=== PATIENT | male | born 1940 | race Caucasian/White ===

== ENCOUNTER → 2016-10-02 | Outpatient (CLI) | payer OTHER ==
[~2016-10-02] VITALS: Ht 172.7 cm; Wt 69.9 kg
[~2016-10-02] MED LIST: ANDROGEL1.25 GM TD; BUTRANS1 EAC1 TD; CELEBREX 200 M200 M1 PO; CELEXA20 MG PO; CLONAZEPAM 1 MG1 M1 PO; DEPO-TESTO100 MG/1 M IM; FENTANYL PA25 MCG/HR TRANSDERM; FENTANYL PA50 MCG/HR TRANSDERM; LISINOPRIL10 MG PO; LISINOPRIL5 MG PO; MOBIC15 MG PO; MOBIC7.5 MG PO; MS CONTIN15 MG PO; MULTI VITAMIN1 EACH PO; OSTEO BI-FLEX1 EAC1 PO; OXYCODONE-ACET1 EAC2 PO; OXYCODONE-ACET1 EACH PO; PERCOCET 10-321 EACH PO; RITALIN10 MG PO; SIMVASTATIN40 MG PO; SONATA5 M1 PO; ZOCOR 10 MG TAB10 MG PO
--- NOTE | ~2016-10-02 | HPC ---
[facility] [address] [place] [address] PAIN MANAGEMENT CONSULTATION Name: FATIMAH LI Room #: REG TEZ Brit#: [id number] Admission: 10/02/16 Attend Phys: Jose Blount MD Discharge: Date of : 44 Report #: [id number] THIS REPORT FOR: //name// CC: ANAMARIA Blount DATE OF SERVICE: 10/02/2016 DATE OF REGISTRATION: 10/02/2016 Followup visit for axial low back pain, lumbar facet pain bilateral, lumbar spondylosis. After an exhaustive period of time describing explaining the diagnostic procedure for lumbar facet pain followed by the performance of medial branch nerve blocks, the patient was discharged after last visit when we performed injections. At the time of discharge he reported no pain and had substantial improvement over the next 12-24 hours with the diagnostic 0.5% Marcaine before the pain returned. As we had discussed at previous visit and at multiple previous visits, this would indicate that the lumbar facet joints are the cause of his underlying back pain. He returned today to begin procedure radiofrequency lesioning as discussed at his last visit. He stopped me in the pressley before he had even reached the room and said he had decided that he did not want to proceed with radiofrequency. He said "I am just not ready for that yet." After all of our discussions, I did not spend further time trying to convince him or explain to him why that would be the next logical step. He requested lumbar cortisone facet injections which he reports have provided him at times with months of pain relief. These were last done in mid 2015. I have agreed to do so. Again, the most pressing topic for him as we begin to discuss his pain are his financial issues. He led off describing the hardships that he and his are having and going from their previous state, which he describes as being millionaires to now being essentially destitute. I empathized but I was unable to provide more than my emotional support. We did acknowledge that this is stressful for him and stress exacerbates pain. We have discussed his medications, which include the use of opioids, citalopram for depression and clonazepam prescribed for anxiety or for sleep. I have discussed the possibility of tapering his opioids due to his feelings of tiredness during the day. These are never evident during his visits. He is always wide awake and does not appear to be overmedicated. He reports that without the pain medication he does not think that he would get out of bed at [address] [address] PAIN MANAGEMENT CONSULTATION Name: FATIMAH LI Room #: REG CLI MiguelangelVioletta#: [id number] Admission: 10/02/16 Attend Phys: Jose Blount MD Discharge: Date of : 44 Report #: [id number] all, his pain is so severe. When the injections are performed and his pain improves, I would like him to taper on his oxycodone and in the future we will continue to try and press him to taper his medication. MEDICATIONS: Fentanyl patch 50 mcg q.72 hours, Oxycodone 5/325 one half to one tablet as needed for breakthrough pain q.8 hours, Celebrex 200 mg daily, clonazepam 1 mg at bedtime, citalopram 20 mg morning. In addition, he takes simvastatin 40 mg in the evenings. ALLERGIES: None. PHYSICAL EXAMINATION: Slender and anxious gentleman, blood pressure 121/86, heart rate 79, respirations 14, 5 feet 8 inches, 154 pounds, BMI of 23.4, moves easily from sitting to standing position, ambulates without difficulty. Range of motion of the lumbar spine is fairly normal for age. He has mild exacerbation of pain with back extension. This is where he complains of most of his pain across the lumbosacral segment. Lateral tilt and rotation movements also mildly exacerbate pain. He scores his pain as a 3 today. IMPRESSION: 1. Chronic back pain without radiculopathy. Lumbar facet pain assuming L3-L4, L4-L5 and L5-S1 based upon diagnostic injections bilaterally. Lumbar spondylitic pain without radiculopathy. 2. Management of high risk medication. 3. Depression and anxiety. PROCEDURE: After discussing the potential benefits, risks and the offer of radiofrequency ablation at some time in the future, we went to the treatment room where he was placed prone, skin prepped with ChloraPrep. Skin was anesthetized first on the left overlying the L3-L4, L4-L5 and L5-S1 facet joints. A 25-gauge needle was gently advanced into the posterior capsule of the inferior most portion entering that recess of the joint. After negative aspiration, I injected each joint capsule with total of 1 mL of 0.5% bupivacaine mixed with roughly 12-15 mg of triamcinolone. The needles were removed. C-arm was moved to the right and injections were performed at the same joints. Total of 6 joints were injected. He tolerated the procedure well. Pain was markedly reduced in recovery room, he was discharged. No medications were provided at today's visit. <ELECTRONICALLY SIGNED> By: Jose Blount MD 10/03/16 [id number] [id number] Jose Blount MD /nt
[2016-10-02 10:33] VITALS: BP 121/86
== END | disposition home or self-care (01) ==
LOC: PAIN 07:04
DX: M47.816 Spondylosis without myelopathy or radiculopathy, lumbar region (principal); M54.16 Radiculopathy, lumbar region; F32.9 Major depressive disorder, single episode, unspecified; F41.9 Anxiety disorder, unspecified

== ENCOUNTER → 2016-12-07 | Outpatient (CLI) | payer OTHER ==
[~2016-12-07] VITALS: Ht 172.7 cm; Wt 64.4 kg
[~2016-12-07] MED LIST changes: +VOLTAREN GEL 1100 G2 TOP
--- NOTE | ~2016-12-07 | HPC ---
[facility] [address] [place] [address] PAIN MANAGEMENT CONSULTATION Name: FATIMAH LI Room #: REG TEZ Brit#: [id number] Admission: 12/07/16 Attend Phys: Jose Blount MD Discharge: Date of : 44 Report #: [id number] THIS REPORT FOR: //name// CC: ANAMARIA Blount DATE OF SERVICE: 12/07/2016 Followup visit for chronic low back pain, lumbar spondylosis. The patient was last seen over 2 months ago. He has axial back pain without radiculopathy and has been responsive to lumbar facet injections. Over the course of the last year, I have performed lumbar facet injections on 3 separate occasions and I have also performed medial branch nerve blocks in anticipation of radiofrequency ablation. He has responded to all injections with duration of response varied between a few days with medial branch nerve blocks and up to 3 months with lumbar facet intraarticular injections. I have discussed at length the procedure radiofrequency ablation; however, he has decided against the procedure. We reviewed it again today, but he would like to continue with these low dose triamcinolone injections which most recently provided him with nearly 2-1/2 months of excellent pain relief, pain is now returning. I also provided for him chronic pain medication under terms of an opioid agreement. He is currently using 50 mcg of fentanyl patches every 2 days, which is discussed elsewhere in the chart and oxycodone 5/325 up to 3 times a day for breakthrough pain. He uses this based on need and I have pressed him to use the lowest most effective dose. He has constantly complained of lack of energy even before he was on medication, much of this related to pain, he says. When the pain is severe, he just needs to lie down. Because of his lack of energy, his primary care physician, Dr. Anamaria Rosen has given him testosterone injections monthly and he seems to think that this has helped. He does seem to be more positive today. It is quite likely that his testosterone is low both because of age and related to his use of chronic opioids which we have discussed. For the first time in many visits, he did not discuss his financial situation with us. He seems less stressed today. PHYSICAL EXAMINATION: He is lean, 76-year-old. Blood pressure is 122/70, heart rate is 53. He moves easily from sitting to standing position, walks without antalgic features. He bends over slightly at the waist and with back extension, he complains of pain across his lumbosacral segment involving the L5-S1, L4-L5, L3-L4 region with local tenderness. There is no pain in the legs, no straight [address] [address] PAIN MANAGEMENT CONSULTATION Name: FATIMAH LI Room #: REG [facility] Miguelangel.#: [id number] Admission: 12/07/16 Attend Phys: Jose Blount MD Discharge: Date of : 42 Report #: [id number] leg raising or any other discomfort. No focal weakness is noted through the lower extremities. IMPRESSION: 1. Chronic back pain with lumbar spondylosis L3-L4 through L5-S1. 2. Management of high risk medication. 3. Depression, anxiety, improved. PLAN: After a lengthy discussion, I have agreed to provide him with the triamcinolone injections. Once again, I will provide these for him at intervals necessary and will try not to exceed Medicare guidelines for this. Risks and benefits were reviewed. PROCEDURE: He was taken to the fluoroscopic suite for treatment, placed prone, skin prepped with ChloraPrep, skin anesthetized over the L4-L5, L5-S1 and L3-L4 facet joints. We began on the left. The 25-gauge needles were gently advanced into the joint capsule in the posterior inferior aspect. After negative aspiration, I injected each one with 0.5% bupivacaine mixed with 10 mg of triamcinolone. [place] were removed. C-arm was then moved to the right. We performed the injections on the opposite side using the same technique. He was taken to recovery room for observation. His pain score was 0 when he was discharged, his movements were much more . Followup visit is planned as needed. Three months of medication provided under terms of our opioid agreement, which was reviewed. We discussed the CDC guidelines once again. By: [id number] Jose Blount MD /nt
[2016-12-07 14:00] VITALS: BP 125/65
== END ==
LOC: PAIN 11-13 07:35
DX: M47.816 Spondylosis without myelopathy or radiculopathy, lumbar region (principal); F41.8 Other specified anxiety disorders; G89.29 Other chronic pain

== ENCOUNTER → 2017-02-22 | Outpatient (CLI) | payer OTHER ==
[~2017-02-22] VITALS: Ht 172.7 cm; Wt 73.0 kg
--- NOTE | ~2017-02-22 | HPC ---
[facility] [address] [place] [address] PAIN MANAGEMENT CONSULTATION Name: FATIMAH LI Room #: REG TEZ Brit#: [id number] Admission: 02/22/17 Attend Phys: Jose Blount MD Discharge: Date of : 42 Report #: [id number] THIS REPORT FOR: //name// CC: ANAMARIA Blount DATE OF SERVICE: 02/22/2017 DATE OF REGISTRATION: 02/22/2017. REASON FOR VISIT: Followup visit for lumbar spondylosis. SUBJECTIVE: The patient returns to pain clinic today for renewal of pain medication. He would like to have injections once again. He is a candidate for radiofrequency ablation but refuses it. He does get some decent relief with facet injections performed intermittently. I have agreed to repeat these injections for him today. His reports that he still laze around the house a lot. We have encouraged him, but I can do no more. He says that his pain is just too severe for him to get up and be active. Pain score today is reported as a 5/10. It is a constant stiffness and aching soreness in his low back. He denies leg pain once again. Pain is worse with prolonged sitting, driving here from [place] caused an increase in pain. It is worse also with prolonged walking activities. He tried to get in a walking program as I recommended but he said that it just caused too much pain. His affect is depressed, and he does not seem very motivated to do anything. I asked him about the upcoming solar eclipse which will be in his home town. He says he may watch it on TV. MEDICATIONS: Reviewed and reconciled from the electronic medical record. Medications that I provided for him under terms of an agreement are fentanyl 50 mcg q.48 hours and oxycodone 5/325 one tablet 3 times daily as needed for breakthrough pain. He has release prescriptions for 4 and 8 weeks. These medications were renewed for him today. PHYSICAL EXAMINATION: GENERAL: Affect is depressed and anxious. VITAL SIGNS: His blood pressure is 116/79, heart rate 66, and respirations 16. BMI is 24. MUSCULOSKELETAL: He is able to move from sitting to standing position pretty easily. Ambulates without antalgic features. He has mild pain with flexion, extension and mild local tenderness over the lumbosacral spine. This pain is mostly in the lower lumbar region. [address] [address] PAIN MANAGEMENT CONSULTATION Name: FATIMAH LI Room #: REG TEZ Means.#: [id number] Admission: 02/22/17 Attend Phys: Jose Blount MD Discharge: Date of : 42 Report #: [id number] IMAGING STUDIES: X-rays done in the past have demonstrated degenerative disease; this is age appropriate with multilevel disk changes. There is good alignment. He also has some minimally enhancing subacute small herniations seen along multiple endplates throughout the lumbar spine. Traditionally, these have not been felt to cause significant pain, although there may be some rethinking of this in the recent past. IMPRESSION: 1. Low back pain with spondylosis, bilateral L3-L4 through L5-S1. 2. Management of high-risk medication. 3. Depression, anxiety. PLAN: I will repeat the injections today in addition to his renewed medications. DESCRIPTION OF PROCEDURE: He was taken to fluoroscopy suite, placed prone and skin was prepped with ChloraPrep. Skin was anesthetized first on the left. Using fluoroscopic guidance, I carefully advanced 25-gauge needle into the posterior inferior capsule of L5-S1, L4-L5, L3-L4. After negative aspiration, I injected each joint with 1.5 mL of 0.5% bupivacaine mixed with 10-15 mg of triamcinolone. The needle was removed. C-arm was then rotated to the right. I identified once again, the same joints L3-L4, L4-L5 and L5-S1, and I advanced 25-gauge needles gently into the posterior inferior aspect of each joint. I repeated the injections on the right. He tolerated the injections well and was taken to the recovery room. Pain score is reduced at discharge. We will see him back as needed. We will try to perform these injections intermittently. I have reviewed again radiofrequency ablation with him given his response to these diagnostic injections, but he has it in his head this is a very dangerous procedure and does not want to go forward with it. I cannot force him into the treatments and willing to provide these cortisone injections for him which can be performed quickly under fluoroscopic guidance and are safe and effective for a few months. By: [id number] Jose Blount MD /nt
[2017-02-22 12:54] VITALS: BP 116/79
== END | disposition home or self-care (01) ==
LOC: PAIN 07:25
DX: M47.816 Spondylosis without myelopathy or radiculopathy, lumbar region (principal); G89.29 Other chronic pain; F32.89 Other specified depressive episodes; F41.8 Other specified anxiety disorders; Z79.891 Long term (current) use of opiate analgesic; Z98.890 Other specified postprocedural states

== ENCOUNTER → 2017-09-05 | Outpatient (CLI) | payer OTHER ==
[~2017-09-05] MED LIST changes: +DURAGESIC1 EAC1 TRANSDERM; +DURAGESIC1 EAC5 TOP; +PROBIOTIC1 EAC1 PO; +PROTONIX40 M1 PO
--- NOTE | ~2017-09-05 | HPC ---
[facility] [address] [place] [address] PAIN MANAGEMENT CONSULTATION Name: FATIMAH LI Room #: REG TEZ Miguelangel.#: [id number] Admission: 09/05/17 Attend Phys: Jose Blount MD Discharge: Date of : 44 Report #: [id number] THIS REPORT FOR: //name// CC: Dr. Randal Blount DATE OF SERVICE: 09/05/2017 Followup visit for lumbar spondylosis. The patient is in the Pain Clinic today with his in followup. He complains bitterly of pain in his back so much so that he cannot get out and do things. He spends a lot of time lying around the house. This is despite ongoing encouragement from his and myself. His is a real go-getter. She is a real time trader and has extensive volunteer for children program in [place], [place]. She also is on him a lot to try and get up and get going, but he does not seem to have any motivation, complaining that his pain is so bad that he cannot do anything. We have documented this throughout his visits here in the Pain Clinic. He has depression, which has been treated with Celexa and we have encouraged counseling. He does not seem to be motivated to pursue any of these options. I have tried to taper his medications in the past with limited improvement, generally follow up concerns that his pain is unmanageable. He is on fentanyl 50 mcg q. 48 hours. He is one of the many patients who we have seen who reports dramatic drop in pain relief at the 48-72 hour period, so use it at that level. He also has oxycodone 5/325 one tablet 3 times a day for breakthrough pain. I have encouraged him to use his medication prior to walking activities and I have really stressed importance of a walking program to him as well as perhaps even volunteering as his does. Again tells me that he is simply in too much pain and will not be able to do anything. The PQRS review is completed today. 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 He has remained slender with BMI in the mid-20s with no change or weight loss. His blood pressure is 126/86, heart rate 78, O2 sat is 97. Pain intensity today despite medication is 5/10. He has not fallen in the last 3 months and is not a fall risk. He is on no blood thinning medications. He has no history of hypertension. He is on an opioid agreement, which was initially signed several years ago and reevaluated in 02/2016. He is reminded of his responsibilities at each visit. An opioid risk tool has been completed that shows that he has at low risk for addiction. Functional assessment tool is also assessed verbally. He is not very active despite urgings. I am reluctant to increase pain medication as he request in order to try and get him moving. [address] [address] PAIN MANAGEMENT CONSULTATION Name: FATIMAH LI Room #: REG TEZ Perea#: [id number] Admission: 09/05/17 Attend Phys: Jose Blount MD Discharge: Date of : 42 Report #: [id number] In the interval since last visit, he was hospitalized for a bleeding ulcer. He should avoid all nonsteroidal anti-inflammatory drugs and opioids would likely be the most beneficial pain relieving medication for this gentleman. IMPRESSION: 1. Chronic intractable low back pain with spondylosis. 2. Ongoing depression and anxiety. 3. Recent gastritis with bleeding. PLAN: I renewed his current opioid medications under terms of our agreement. I stressed the importance of safeguarding all medications. Before discharging him from the clinic, both his and I made multiple suggestions for opportunities for him to get out and pursue activities outside of the home. We will see if he follows up on these at next visit. By: [id number] Jose Blount MD /nt
[2017-09-05 13:07] VITALS: BP 126/86
== END ==
LOC: PAIN 06-28 12:02
DX: M47.896 Other spondylosis, lumbar region (principal); F41.9 Anxiety disorder, unspecified; F32.9 Major depressive disorder, single episode, unspecified; K29.71 Gastritis, unspecified, with bleeding

== ENCOUNTER → 2018-01-10 | Outpatient (CLI) | payer OTHER ==
[~2018-01-10] VITALS: Ht 172.7 cm; Wt 80.7 kg
[~2018-01-10] MED LIST changes: +WELLBUTRIN SR150 MG PO
--- NOTE | ~2018-01-10 | HPC ---
[facility] [address] [place] [address] PAIN MANAGEMENT CONSULTATION Name: FATIMAH LI ARIANNA Room #: REG TEZ Miguelangel.#: [id number] Admission: 01/10/18 Attend Phys: Jose Blount MD Discharge: Date of : 42 Report #: [id number] THIS REPORT FOR: //name// CC: Physician staff ANAMARIA Bloutn DATE OF SERVICE: 01/10/2018 Followup visit for lumbar spondylosis. The patient returns to pain clinic today for followup. I continue to provide him medication to aid with his chronic pain. His , who is extremely hard of hearing, is with him today in the office visit to help share her perspective. In addition to chronic pain, the patient complains that he is always tired. His says that he spends far too much time sleeping. This has been a recurring complaint and an issue we have dealt with. I have tapered his pain medications as a result. When this occurs, the patient typically complains bitterly that he is even more sedate and more inclined to spend time in bed because the pain is so severe. He reports that it is pain that keeps him down, not so much that he is tired. We have identified two problems, the lack of motivation to get up and do things due to either tiredness or pain and chronic pain, which he tolerates poorly. His pain complaints today are typical low back, chronic spondylitic leg pain, but he also complains of pain in his right arm, which is due to a distant injury. He would not raise his arm to shake my hand today. That is not something that I remember. Medication does help his pain and reduces the intensity to a level today that he scores at 2/10. This unfortunately does not correlate with an improvement in day-to-day activities. He has only mild constipation as a side effect unless we consider his lack of motivation one of the pain medication. He has been placed on stimulants in the past. He is seen by Dr. Rosen on a regular basis. He has also been started on testosterone; a typical side effect of chronic opioid therapy is low testosterone, which we also see in a 77-year-old gentleman. PHYSICAL EXAMINATION: He is 5 feet 8 inches, blood pressure is 127/77, heart rate 72. His BMI is 27. He is not a fall risk. He is alert and he is oriented, shows no signs of overmedication today in our office. Pupils are equal, round, reactive to light. EOMs are intact. Mucous membranes are moist. Chest is clear. Cardiac rhythm is regular. Moves from sitting to standing and [facility] [address] [place] [address] PAIN MANAGEMENT CONSULTATION Name: FATIMAH LI Room #: REG [facility] Miguelangel.#: [id number] Admission: 01/10/18 Attend Phys: Jose Blount MD Discharge: Date of : 42 Report #: [id number] ambulates without too much in the way of antalgic features. He has increase in pain with back extension and [id number] movements. New findings include weakness of the upper extremity. He has good range of motion of the shoulder, elbow and wrist. He complains of weakness in the biceps, triceps and director of restaurant operations, all of which are noted subjectively in physical examination, although this may be related to effort. IMPRESSION: 1. Chronic intractable pain syndrome with spondylosis. 2. New reports of right arm pain and weakness, etiology (?) 3. Chronic anxiety and depression with debility. 4. Management of high risk medication. 5. History of gastritis with bleeding. We cannot use nonsteroidal anti-inflammatory drugs in his care. PLAN: I will renew his medications at fentanyl patch 50 mcg q.48 hours and oxycodone 5/325 three times daily. We reviewed his opioid agreement, the CDC guidelines. Hopefully, he will begin to push himself a bit from an exercise standpoint. I gave him significant encouragement today verbally regarding his need to push through his pain to remain more active during the day. I think there is a significant psychological overlay. Followup visit planned in 3 months. By: [id number] Jose Blount MD /cynthia
[2018-01-10 09:38] VITALS: BP 127/77
== END ==
LOC: PAIN 07:04
DX: M47.816 Spondylosis without myelopathy or radiculopathy, lumbar region (principal); G89.4 Chronic pain syndrome; F41.9 Anxiety disorder, unspecified; F32.9 Major depressive disorder, single episode, unspecified; Z79.899 Other long term (current) drug therapy

== ENCOUNTER → 2018-04-19 | Outpatient (CLI) | payer OTHER ==
[~2018-04-19] VITALS: Ht 172.7 cm; Wt 77.7 kg
[~2018-04-19] MED LIST changes: +DURAGESIC1 EAC5 TRANSDERM
--- NOTE | ~2018-04-19 | HPC ---
[facility] [address] [place] [address] PAIN MANAGEMENT CONSULTATION Name: FATIMAH LI Room #: REG [facility] Miguelangel.#: [id number] Admission: 04/19/18 Attend Phys: Nubia Buckley Discharge: Date of : 44 Report #: [id number] THIS REPORT FOR: //name// CC: Nubia Rosen Physician staff ANAMARIA Blount MD DATE OF SERVICE: 04/19/2018 CHIEF COMPLAINT: Follow up medication for his lumbar back pain, lumbar spondylosis. HISTORY OF PRESENT ILLNESS: The patient was seen in the Pain Clinic today for followup for his back pain. He states that it is terrible today, rating it actually only a 3 or a 4/10, but states that he is unable to get out of bed and has been sleeping about 15-20 hours a day because anytime he does any activity, his back hurts terribly. He said that he usually likes to get up and move, but he states that he feels most comfortable while he is lying in bed. His is not present today. She is going to need a knee replacement in the very near future and did not accompany him at this visit today. He states that she takes care of most of his medicines for him. The patient states that his primary doctor or his , he is unsure which one, did change some of his medications and he is more depressed than he usually is and thinks also that may aid in why he is sleeping so much. ALLERGIES: No known drug allergies. CURRENT MEDICATIONS: Oxycodone 5 mg, 1/2-1 three times a day as needed; fentanyl 50 mcg patch every 48 hours; probiotic; Protonix 40 mg twice a day; Voltaren gel up to 4 times a day; Celebrex 200 mg twice a day; Zocor 40 mg once a day; clonazepam 1 mg 1-1/2 tablets daily; Celexa 10 mg once a day; multivitamin. The patient's PQRS is completed today. 1. History of osteoarthritis, neck pain, low back pain, right arm pain. Denies rheumatoid arthritis. 2. Height 5 feet 8 inches, weight 171, BMI is 26. 3. Vital signs: Blood pressure 120/78, pulse is 76, respirations 14, oxygen level is 95%. 4. The patient complains of pain score of 3/10 or 4/10 today. 5. Fall risk: The patient denies any dizziness or need of help in walking and he has not fallen in the last 3 months. 6. No blood thinners noted. 7. He has no [place] [address] PAIN MANAGEMENT CONSULTATION Name: FATIMAH LI ARIANNA Room #: REG [facility] Brit#: [id number] Admission: 04/19/18 Attend Phys: Nubia Buckley Discharge: Date of : 44 Report #: [id number] 8. Opioid therapy greater than 6 weeks, yes, and he has signed an opioid contract on chart with Dr. Jose Blount. 9. Risk assessment tool is low. 10. He has a functional pain assessment, is also verbally assessed. 11. Recreational drug use is denied. Tobacco use: Never smokes or used tobacco products and past use of alcohol products, none presently. PHYSICAL EXAMINATION: GENERAL: Affect is depressed today. HEENT: Normocephalic, atraumatic. Pupils are equal, round and reactive to light. Speech is affluent. MUSCULOSKELETAL: Able to move from sitting to standing position easily. Ambulates without antalgic features. He does complain of pain in his right arm. He has mild pain with flexion and extension, local tenderness in his lumbosacral spine. His pain today, mostly complaints of lower lumbar region and right arm. We reviewed the fact that opiate medications are being used to provide analgesia adequate to support activities of daily living, not attempting to achieve a specific pain score on the 0-10 Visual Analog Scale. The current opiate medications are providing sufficient analgesia to allow the patient to participate in activities of daily living. The patient is not exhibiting any aberrant behavior suggestive of drug diversion. The patient is not having any adverse reactions to medications. The patient is not suffering from daytime somnolence or mental acuity changes. The patient is managing opiate-induced constipation with appropriate [id number]-[id number] agents and dietary considerations. The patient was counseled on concern for caution with operating a motor vehicle while using opiate medications. A physical exam was performed and the patient's functional status was evaluated. All patients with back pain were advised against the bed rest greater than 4 days and were advised to return to normal activities. Pain score assessment was noted and the treatment plan was reviewed with the patient. All current medications, both prescribed and OTC were reviewed and reconciled on the electronic medical record. Tobacco screening was accomplished and smoking cessation was advised when indicated. BMI was noted and diet/exercise modification was recommended for all patients following outside normal parameters. I reviewed with the patient today their responsibilities to safeguard prescription medications, reviewed their responsibility to utilize medications only as prescribed by the physician. They are to seek and receive pain medications only from 1 physician group ([facility]). They are to use 1 pharmacy and keep the clinic informed if they change pharmacies. Their responsibilities include making followup visits in a timely fashion and to avoid abrupt discontinuation of medication usage. Their responsibilities further [address] [address] PAIN MANAGEMENT CONSULTATION Name: FATIMAH LI Room #: REG [facility].#: [id number] Admission: 04/19/18 Attend Phys: Nubia Buckley Discharge: Date of : 44 Report #: [id number] include bringing their medications (bottles from the pharmacy with residual pills) to the visit for possible confirmation of pill counts and the patient understands it is their responsibility to submit to random drug screens to ensure both that the medications prescribed are present, and that no other controlled substances are present. All prescriptions provided today were generated electronically. IMPRESSION: 1. Low back pain with spondylosis. 2. Management of high risk medications. 3. Depression. 4. Anxiety. PLAN: 1. Discussed with the patient in depth today regarding his medications and his sleeping in bed for 15-20 hours a day or at least reclining in bed. Encouraged patient to ambulate and be as active as possible. 2. We reconcilled his medication list and the patient is agreeable to decrease one Percocet a day from oxycodone 5/325, 3 a day to 2 a day to see if that helps with decrease his sleeping. Also, the patient states that he does not need pain medicine while he is lying in bed. 3. Did discuss with the patient as an option in the future if this does not help him stay awake that we could decrease his fentanyl patches from 50 mcg every 48 hours to 60 hours to see if that helps so that he is not sedate and able to move around more. We have not made any changes at this time for his fentanyl scripts. 4.The patient also going to decrease his clonazepam from 1.5 mg to 1 mg, which is his previous dose. The patient is not sure if his increased this or his primary doctor, but our previous visit showed that he was on 1 mg daily. This could also aid in his sleepiness. 5.The patient's anti-depression medicine Celexa was previously 20 mg once a day. Currently, he is taking 10 mg. The patient also unsure if his decreased this or his primary doctor, but he appears very depressed today and the patient would like to go back to his previous dose. Instructed the patient that we are not prescribing that. He could ask Dr. Rosen if he could go back to 20 mg once a day. I believe this will aid in less depression and also help make him feel better and be able to encourage being up and being more active in his daily activities. 6. Today, the patient was provided with two scripts, fentanyl 50 mcg every 48 hours, quantity 15 for today and 4 weeks and oxycodone 5/325, 1 to 1-12 b.i.d., quantity 60 today and 4 weeks. The patient is to return in 2 months' time unless he is able to decrease his fentanyl patch, he will come later or if he feels like he needs another [place] [address] PAIN MANAGEMENT CONSULTATION Name: LIFATIMAH ARIANNA Room #: REG CLIgnacio Perea#: [id number] Admission: 04/19/18 Attend Phys: Nubia Buckley Discharge: Date of : 44 Report #: [id number] pain control, he will make an appointment earlier to see Dr. Jose Blount. 7. The patient seen in collaboration today with Dr. Cezar Prince. <ELECTRONICALLY SIGNED> By: Nubia Buckley 04/22/18 0730 [id number] Nubia Buckley /nt
[2018-04-19 13:38] VITALS: BP 120/78
== END ==
LOC: PAIN 07:08
DX: M47.816 Spondylosis without myelopathy or radiculopathy, lumbar region (principal); F32.9 Major depressive disorder, single episode, unspecified; F41.9 Anxiety disorder, unspecified; Z79.899 Other long term (current) drug therapy

== ENCOUNTER → 2018-07-18 | Outpatient (CLI) | payer OTHER ==
[~2018-07-18] VITALS: Ht 172.7 cm; Wt 76.7 kg
[~2018-07-18] MED LIST changes: +NARCAN4 MG NASAL
--- NOTE | ~2018-07-18 | HPC ---
[facility] [address] [place] [address] PAIN MANAGEMENT CONSULTATION Name: FATIMAH LI Room #: REG SHANTEIgnacio Means.#: [id number] Admission: 07/18/18 Attend Phys: Jose Blount MD Discharge: Date of : 44 Report #: [id number] THIS REPORT FOR: //name// CC: Physician staff ANAMARIA Blount DATE OF SERVICE: 07/18/2018 REASON FOR VISIT: Followup visit for chronic low back pain with spondylosis. HISTORY OF PRESENT ILLNESS: The patient is here today with his . He continues to complain bitterly of pain in his low back. We have tried multiple interventional approaches including injections, even radiofrequency ablation. Nothing is provided in the long-term relief. His pain does not radiate and he has no radicular component. We have not had a recent MRI and it suggests that perhaps would review the MRI once again in the lumbosacral region and an order was performed for the test, which will be done in [place] where he lives. Because of his constant complaining of pain to his and also to his clinic, he has been on an opioid agreement and we have provided him with fentanyl 50 mcg patch every 48 hours and hydrocodone 5/325 a couple of times a day as needed for breakthrough pain. Although he states that this is unsatisfactory. It is substantial amount of opioid should allow him to be more helpful. MEDICATIONS: In addition to these medications, he takes Celebrex 200 mg b.i.d., Zocor, clonazepam 1 mg daily for anxiety, Celexa 10 mg once daily for anxiety and pain, multivitamins, Protonix and probiotic. SOCIAL HISTORY: He is . Denies use of tobacco or alcohol. 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 He oftentimes lays on the couch and then back to bed. His encourages him, but he is very resistant to any sort of exercise. PQRS REVIEW: 1. History of osteoarthritis, neck, low back and shoulder. 2. The patient is not a fall risk. 3. No blood thinners. 4. No history of hypertension. 5. Opioid therapy greater than 5-6 weeks, on an opioid agreement, which has been signed and reviewed, receives medications per the CDC guidelines with regular followup. 6. Risk assessment tool has been completed and he is considered at low risk for [facility] [address] [place] [address] PAIN MANAGEMENT CONSULTATION Name: FATIMAH LI Room #: REG CLIgnacio Perea#: [id number] Admission: 07/18/18 Attend Phys: Jose Blount MD Discharge: Date of : 44 Report #: [id number] addiction. 7. Denies use of recreational drug use, tobacco or alcohol. PHYSICAL EXAMINATION: GENERAL: This is a depressed gentleman, a bit argumentative today. VITAL SIGNS: Blood pressure is 111/85, heart rate is 96, respirations 14 and BMI is 25.7. EXTREMITIES: He moves easily from sitting to standing position, but his gait is a bit unsteady and he tends to drift to the right. His spinal alignment is normal. He has pain with forward flexion but increased pain with back extension suggesting spondylosis. Rjro-xa-thxb rotational movements and lateral tilt all increased pain. Straight leg raising is negative for leg pain. Sensation is intact. IMPRESSION: 1. Chronic low back pain with lumbago and spondylosis. 2. Chronic depression. 3. Hypersomnia. 4. Management of high risk medications under terms of an opioid agreement. I have reviewed the [facility] prescription drug monitoring program and there are no unexpected events or entries. I reviewed with him the CDC guidelines and the importance of safeguarding all his medication. 5. I have suggested an epidural injection once again, but he would like to hold off since he has not had lasting improvement. 6. Discussion regarding possible intrathecal pump. I am not sure if he would be a very good candidate from a psychological standpoint. He would be a challenge for long-term management. PLAN: I renewed his medications and we will follow up with him in 2 months. Buccal drug testing was performed today. A 30-minute complex office visit. By: [id number] Jose Blount MD /nt
[2018-07-18 11:10] VITALS: BP 111/85
--- NOTE | 2018-07-18 11:35 | NUR ---
Pain Clinic Assessment: 1. History of Osteoarthritis: Not Applicable History of Rheumatoid Arthritis: Not Applicable 2. Height: 5 ft. 8 in. 172.7 cm. Weight: 169.0 lb. oz. 76.658 kg. Patient's BMI: 25.7 3. Vital Signs: BP: 111/85 Pulse: 96 Resp: 14 Temp: 02 Sat: 97 ECG Mon: 4. Pain Intensity: 6-7 5. Fall Risk: Dizziness: N Needs help standing or walking: N Fallen in the last 3 months: N Fall risk comments: 6. Patient on Blood Thinner: None 7. History of Hypertension: N 8. Opioid Therapy greater than 6 weeks: Y Opiate Contract Signed: 03/02/16 9. Risk Assessment Tool Provided: Opioid Risk Tool 10. Functional Assessment Tool: Y 11. Recreational Drug Use: Never Drug Type: Tobacco Use: Never Smoker Tobacco Type: Amount or Packs/day: How Many Years: Alcohol Use: Past use Frequency: Quant:
== END ==
LOC: PAIN 07:06
DX: M47.816 Spondylosis without myelopathy or radiculopathy, lumbar region (principal); G89.29 Other chronic pain; G47.10 Hypersomnia, unspecified; F32.9 Major depressive disorder, single episode, unspecified; Z79.891 Long term (current) use of opiate analgesic; Z79.899 Other long term (current) drug therapy

== ENCOUNTER → 2018-09-12 | Outpatient (CLI) | payer OTHER ==
[~2018-09-12] VITALS: Ht 172.7 cm; Wt 77.1 kg
--- NOTE | ~2018-09-12 | HPC ---
[facility] [address] [address] PAIN MANAGEMENT CONSULTATION Name: FATIMAH LI Room #: REG TEZ Brit#: [id number] Admission: 09/12/18 ������������������ Attend Phys: Jose Blount MD Discharge: ������������������ Date of : 44 Report #: [id number] THIS REPORT FOR: //name// CC: Dr. Rosen Physician staff ANAMARIA Blount DATE OF SERVICE: 09/12/2018 Followup visit for chronic lumbosacral pain. The patient returns to pain clinic today with his . We reviewed his MRI, which was ordered on 07/18/2018. This MRI confirms evidence of lumbar spondylosis and multilevel degenerative disease. Much of the facet arthropathy is in the L4-L5 region and L5-S1. He has previously had radiofrequency treatments in [place], which he felt were a bad experience and he does not want to undergo radiofrequency ablation for his spondylitic pain. I have intermittently injected him and he finds this to be helpful. His medication management dates back to 2012 and he has been on some opioid medication to help manage his chronic intractable symptoms. He has signed an opioid agreement. He has had no misuse or abuse findings and his [facility] prescription drug monitoring shows that there have been no additional prescribers. On PQRS, he is not complaining of additional osteoarthritis other than pain across his low back. His pain intensity is 6/10. He is a fall risk and has fallen once in the last 3 months on the thin black ice. He is on no blood thinners nor is he treated for hypertension. All medications are reviewed and reconciled from the electronic medical record. He has signed an opioid agreement and is considered at low risk by the opioid risk tool with a score of 1/10. He does not smoke nor does he use alcohol. PHYSICAL EXAMINATION: GENERAL: His affect is depressed. VITAL SIGNS: His blood pressure is 114/75, heart rate 89, respirations 18, O2 sat 95. His BMI is 25.9. MUSCULOSKELETAL: I walked with him today about 50 feet down the [address]ley and back. He walked slowly, but then is stable. He did not need a cane. He was able to get up and down from a chair independently. Examination of the spine in the standing position reveals pain in range of motion in all directions, flexion, extension, rotation, and oepm-[id number] tilt. Pain and tenderness is across the lumbosacral segment, primarily above the iliac crest line around the area at [address] [address] PAIN MANAGEMENT CONSULTATION Name: FATIMAH LI Room #: REG CLI [facility]#: [id number] Admission: 09/12/18 ������������������ Attend Phys: Jose Blount MD Discharge: ������������������ Date of : 44 Report #: [id number] L4-L5. He has some tenderness higher as well. Straight leg raising is negative. Sensory exam is normal to light touch. He does not have any weakness, but has some generalized debility, primarily due to inactivity. IMPRESSION: 1. Chronic low back pain with spondylosis. 2. Chronic depression. 3. Hypersomnia. 4. Management of high risk medications under terms of written opioid agreement. He is asking for additional medication today, but I have decided against this. I think his medications are adequate. I would prefer not to increase medication, particularly for someone who tends to sleep a lot and is not active. He is cautious about the use of nonsteroidal anti-inflammatory drugs, but is on the YADAV-2 inhibiting Celebrex. He will continue on this. He takes clonazepam for anxiety, which may contribute to his drowsiness and I have counseled him about minimizing use of the antianxiety drug. He is also on Celexa for the same purpose. Followup visit is scheduled for 3 months. Medications were written and he was instructed once again to manage his medication carefully under terms of his written agreement. ��������������������������������������������� ���������������������������������������� By: ��������������������������������������������� [id number] Jose Blount MD /nt
[2018-09-12 13:00] VITALS: BP 114/75
--- NOTE | 2018-09-12 13:01 | NUR ---
Pain Clinic Assessment: 1. History of Osteoarthritis: Not Applicable History of Rheumatoid Arthritis: Not Applicable 2. Height: 5 ft. 8 in. 172.7 cm. Weight: 170.0 lb. oz. 77.112 kg. Patient's BMI: 25.9 3. Vital Signs: BP: 114/75 Pulse: 89 Resp: 18 Temp: 02 Sat: 95 ECG Mon: 4. Pain Intensity: 6 5. Fall Risk: Dizziness: N Needs help standing or walking: N Fallen in the last 3 months: Y Fall risk comments: 6. Patient on Blood Thinner: None 7. History of Hypertension: N 8. Opioid Therapy greater than 6 weeks: Y Opiate Contract Signed: 03/02/16 9. Risk Assessment Tool Provided: low-1 10. Functional Assessment Tool: 68/70 11. Recreational Drug Use: Never Drug Type: Tobacco Use: Never Smoker Tobacco Type: Amount or Packs/day: How Many Years: Alcohol Use: Past use Frequency: Quant:
== END ==
LOC: PAIN 07:01
DX: M47.816 Spondylosis without myelopathy or radiculopathy, lumbar region (principal); F32.9 Major depressive disorder, single episode, unspecified; G47.10 Hypersomnia, unspecified; Z79.891 Long term (current) use of opiate analgesic

== ENCOUNTER → 2018-11-21 | Outpatient (CLI) | payer OTHER ==
[~2018-11-21] VITALS: Ht 172.7 cm; Wt 77.6 kg
[2018-11-21 11:21] VITALS: BP 112/84
--- NOTE | 2018-11-21 11:31 | NUR ---
Pain Clinic Assessment: 1. History of Osteoarthritis: Not Applicable History of Rheumatoid Arthritis: Not Applicable 2. Height: 5 ft. 8 in. 172.7 cm. Weight: 171.0 lb. oz. 77.565 kg. Patient's BMI: 26.0 3. Vital Signs: BP: 112/84 Pulse: 99 Resp: 16 Temp: 02 Sat: 96 ECG Mon: 4. Pain Intensity: 7 5. Fall Risk: Dizziness: N Needs help standing or walking: N Fallen in the last 3 months: Y Fall risk comments: 6. Patient on Blood Thinner: None 7. History of Hypertension: N 8. Opioid Therapy greater than 6 weeks: Y Opiate Contract Signed: 03/02/16 9. Risk Assessment Tool Provided: low-1 10. Functional Assessment Tool: 68/70 11. Recreational Drug Use: Never Drug Type: Tobacco Use: Never Smoker Tobacco Type: Amount or Packs/day: How Many Years: Alcohol Use: Past use Frequency: Quant:
--- NOTE | 2018-11-22 11:01 | HPC ---
[facility] [place] [address] PAIN MANAGEMENT CONSULTATION Name: FATIMAH LI ARIANNA Room #: REG Ignacio Perea#: [id number] Admission: 11/21/18 ������������������ Attend Phys: Nubia Buckley Discharge: ������������������ Date of : 42 Report #: [id number] THIS REPORT FOR: //name// CC: Nubia Buckley Physician staff ANAMARIA PEDERSON DATE OF SERVICE: 11/21/2018 CHIEF COMPLAINT: Chronic lumbosacral pain. HISTORY OF PRESENT ILLNESS: This is a 78-year-old gentleman who returns to the pain clinic today for a refill of his medication that he takes for his chronic low back pain and his shoulder pain and knee pain. He tells me that his pain score is a 7/10 today, mostly achy, sharp pain that is worse with activity, better with his medication and lying down. The patient tells me that his pain has increased when he is working in the yard. He would like increase in his medications today. The patient tells me that he was very inactive all winter long and now after about 10-15 minutes of working in the yard, he needs to go and sit down because he has pain that is significant across his lower back. He does have a recent MRI that Dr. Jose Blount ordered in July. He is wondering if he should go and see a surgeon or if he should have a possible injection again or if he should just increase his pain medicine. ALLERGIES: No known drug allergies. CURRENT MEDICATIONS: Oxycodone 5/325 one tablet b.i.d., fentanyl patch 50 mcg every 48 hours, lactobacillus, Protonix 40 mg b.i.d., Voltaren gel up to 4 times a day p.r.n., Celebrex 200 mg b.i.d., Zocor 40 mg daily, clonazepam 1.5 mg daily at bedtime, Celexa 20 mg daily, multivitamin daily. PQRS: 1. The patient has osteoarthritis in his lower back. He denies any rheumatoid arthritis. 2. Height is 5 feet 8 inches, weight is 171 pounds. BMI is 26. 3. Vital signs: Blood pressure 112/84, pulse is 99, respirations 16, oxygen sat is 96. Pain score 7/10. 4. Fall risk: Denies dizziness. He does not need help walking or standing. He has fallen in the last three months. 5. The patient is not on any blood thinners. He does not take medicines for hypertension. 6. Opioid therapy is greater than six weeks; therefore, an opioid signed contract is on the chart. His risk assessment tool is low. His functional assessment is 68/70[place] [address] PAIN MANAGEMENT CONSULTATION Name: LIFATIMAH ARIANNA Room #: REG TEZ Perea#: [id number] Admission: 11/21/18 ������������������ Attend Phys: Nubia Buckley Discharge: ������������������ Date of : 42 Report #: [id number] 7. Recreational drug use: He denies. He is not a smoker and past use of alcohol. We checked the prescription monitoring system. The patient is filling appropriately from his medications. He is slightly early for his medication refill today, but not due for two weeks. We will check a random urine drug screen today for his medications. PHYSICAL EXAMINATION: GENERAL: This is a 78-year-old gentleman that appears his stated age, slightly depressed today that he is alert and orientated, placing his pain score today at 7/10. HEENT: Normocephalic, atraumatic. Pupils equal, round and reactive to light. Speech is fluent. MUSCULOSKELETAL: He is able to move from sitting to standing. He walks with antalgic features. He complains of pain today across his lumbar spine area. His lumbosacral segment, he tells me has tenderness there. It is mostly above his iliac crest line at the L4-L5 region. He also has some pain slightly higher than that. Lower extremity strength judged to be 4/5 bilaterally. He does not use a cane. Pain is increased with provacation testing with flexion and extension and lateral tilt exercise. He has some generalized debility and primarily due to inactivity. IMPRESSION: 1. Chronic low back pain with spondylosis. 2. Chronic depression. 3. Management of high-risk medications under terms of written opioid agreement. We reviewed the fact that opiate medications are being used to provide analgesia adequate to support activities of daily living, not attempting to achieve a specific pain score on the 0-10 Visual Analog Scale. The current opiate medications are providing sufficient analgesia to allow the patient to participate in activities of daily living. The patient is not exhibiting any aberrant behavior suggestive of drug diversion. The patient is not having any adverse reactions to medications. The patient is not suffering from daytime somnolence or mental acuity changes. The patient is managing opiate-induced constipation with appropriate [id number] agents and dietary considerations. The patient was counseled on concern for caution with operating a motor vehicle while using opiate medications. A physical exam was performed and the patient's functional status was evaluated. All patients with back pain were advised against the bed rest greater than 4 days and were advised to return to normal activities. Pain score assessment was noted and the treatment plan was reviewed with the patient. All current medications, both prescribed and OTC were reviewed and reconciled on the electronic medical record. Tobacco screening was accomplished and smoking [facility] [address] [place] [address] PAIN MANAGEMENT CONSULTATION Name: FATIMAH LI Room #: REG [facility] M.R.#: [id number] Admission: 11/21/18 ������������������ Attend Phys: Nubia Buckley Discharge: ������������������ Date of : 42 Report #: [id number] cessation was advised when indicated. BMI was noted and diet/exercise modification was recommended for all patients following outside normal parameters. I reviewed with the patient today their responsibilities to safeguard prescription medications, reviewed their responsibility to utilize medications only as prescribed by the physician. They are to seek and receive pain medications only from 1 physician group ( [facility]). They are to use 1 pharmacy and keep the clinic informed if they change pharmacies. Their responsibilities include making followup visits in a timely fashion and to avoid abrupt discontinuation of medication usage. Their responsibilities further include bringing their medications (bottles from the pharmacy with residual pills) to the visit for possible confirmation of pill counts and the patient understands it is their responsibility to submit to random drug screens to ensure both that the medications prescribed are present, and that no other controlled substances are present. All prescriptions provided today were generated electronically. PLAN: 1. We discussed treatment options with the patient today. The patient tells me he was wishing to increase his breakthrough pain medicine to three tablets a day since his pain is increasing when he does any activity more than 10-15 minutes. I encouraged the patient to resume his activity slowly. He had been very inactive and decreased his strength and is debilitated from not doing anything all winter. He cannot expect to go back to his regular activities right away. He needs to pace himself. I told him I do not believe that he needs another pain pill increase that possibly pacing himself as well as maybe taking some Extra Strength Tylenol in the morning may be beneficial and then take his pain pills when he is more active throughout the day. The patient is agreeable with this. 2. Scripts given for oxycodone 5/325, #60 for release today and 4-week and fentanyl 50 mcg patch every 48 hours, #15 for release today and 4 weeks. 3. I explained the CDC guidelines that he is at a very high dose that is also another reason why we would not want to increase his narcotic use. According to the CDC guidelines, he falls above the 90 morphine milliequivalents. 4. The patient was wondering if he could have a possible injection in his back. His MRI confirms evidence of lumbar spondylosis and multi-degeneration disease and some facet arthropathy at L4-L5 region and L5-S1. He has not had any injections since [address] Jose Blount. I think he may benefit from an injection. An appointment will be made in the near future to discuss either possible facet injections or lumbar epidural steroid injection based on the symptoms he is having that day by Dr. Jose Blount. 5. We did collect a urine specimen on this patient today for a random drug screen. The patient will return in a few weeks for an appointment. [address] [address] PAIN MANAGEMENT CONSULTATION Name: FATIMAH LI Room #: REG TEZ Perea#: [id number] Admission: 11/21/18 ������������������ Attend Phys: Nubia Buckley Discharge: ������������������ Date of : 42 Report #: [id number] 6. The patient is seen by Dr. Jose Blount who collaborated care today as well. ��������������������������������������������� <ELECTRONICALLY SIGNED> ���������������������������������������� By: Nubia Buckley ��������������������������������������������� 11/22/18 1101 [id number] Nubia Buckley /nt
== END ==
LOC: PAIN 06:55
DX: M47.896 Other spondylosis, lumbar region (principal); G89.29 Other chronic pain; F32.9 Major depressive disorder, single episode, unspecified; Z79.899 Other long term (current) drug therapy

== ENCOUNTER → 2018-12-19 | Outpatient (CLI) | payer OTHER ==
[~2018-12-19] VITALS: Ht 172.7 cm; Wt 78.0 kg
--- NOTE | ~2018-12-19 | HPC ---
[facility] [address] [place] [address] PAIN MANAGEMENT CONSULTATION Name: FATIMAH LI ARIANNA Room #: REG [facility] Miguelangel.#: [id number] Admission: 12/19/18 ������������������ Attend Phys: Jose Blount MD Discharge: ������������������ Date of : 42 Report #: [id number] THIS REPORT FOR: //name// CC: Physician staff ANAMARIA Blount DATE OF SERVICE: 12/19/2018 Followup visit for lumbar spondylosis and degenerative disk disease of the lumbar spine. The patient returns to the pain clinic today for treatment. He has pain bilaterally surrounding the L1, L2 and L3 levels. He has evidence of chronic degenerative disk disease at that level. Spurring is noted at L1-L2 and L2-L3. He has responded favorably with local anesthetic and injections with triamcinolone of the L1-L2, L2-L3 and L3-L4 facet joints. I have offered to provide these injections for him bilaterally today at his request. Duration of response can sometimes be months for these injections. We have maximized medication therapy as he is already on fentanyl 50 mcg q. 48 hours and oxycodone 5/325 one to two tablets daily for breakthrough pain. I do not believe that we have much to gain by providing with additional opioids and already I suspect that he has some degree of opioid hyperalgesia. He has Voltaren gel which he applies up to 4 times a day and has used Celebrex in the past. PHYSICAL EXAMINATION: GENERAL: He is a pleasant fellow, alert and oriented, a bit hard of hearing. VITAL SIGNS: Blood pressure 112/70, heart rate 70 and respirations 16. MUSCULOSKELETAL: He moves from a sitting to standing position, ambulates with a good upright gait. His gait is nonantalgic. He has pain with forward flexion, extension and rotation of his lumbar spine. Pain is located in the area just below the rib cage on the high lumbar region and there is localized paravertebral tenderness, consistent with facet arthropathy. IMPRESSION: 1. Degenerative spine disease with degenerative disk disease and lumbar spondylosis. 2. Chronic depression. 3. Management of high-risk medications under terms of written opioid agreement. His prescription drug monitoring program information was checked today. There have been no suspected entries. He does receive Klonopin from Dr. Anamaria Rosen and I provide his opioids for him under terms of our agreement. We have talked [address] [address] PAIN MANAGEMENT CONSULTATION Name: LIFATIMAHDiane KELLER Room #: REG [facility] [id number] Admission: 12/19/18 ������������������ Attend Phys: Jose Blount MD Discharge: ������������������ Date of : 42 Report #: [id number] about the issues related to benzodiazepines and opioids. He has been on them for some time and taken them safely. We have stressed the importance of safeguarding his medications. He is grateful for the medication and the relief that it provides and without it, he does not feel that he would be functional at all. PROCEDURE: Facet injections, L1-L2, L2-L3 and L3-L4 bilaterally under fluoroscopic guidance. DESCRIPTION OF PROCEDURE: He was taken to fluoroscopic suite, placed prone and skin prepped with ChloraPrep. Skin anesthetized first on the left overlying the above-mentioned joints. A 25-gauge needle advanced in the posterior inferior capsule of the joint and after negative aspiration, I injected each joint with 0.5 mL of 0.5% bupivacaine mixed with 15 mg of triamcinolone. Each joint was injected on the left and then we repeated the procedure on the right without complication. He tolerated the procedure well. Pain score was reduced by 50% in the recovery room. Medications renewed under terms of our agreement. I plan to see him back in the clinic no sooner than every 2-4 months. He will carefully safeguard his medications as discussed. ��������������������������������������������� ���������������������������������������� By: ��������������������������������������������� 1758 0013 Jose Blount MD /nt
[2018-12-19 12:34] VITALS: BP 112/70
--- NOTE | 2018-12-19 12:46 | NUR ---
Pain Clinic Assessment: 1. History of Osteoarthritis: Not Applicable History of Rheumatoid Arthritis: Not Applicable 2. Height: 5 ft. 8 in. 172.7 cm. Weight: 172.0 lb. oz. 78.019 kg. Patient's BMI: 26.2 3. Vital Signs: BP: 112/70 Pulse: 70 Resp: 16 Temp: 02 Sat: 96 ECG Mon: 4. Pain Intensity: 5-6 5. Fall Risk: Dizziness: N Needs help standing or walking: N Fallen in the last 3 months: Y Fall risk comments: 6. Patient on Blood Thinner: None 7. History of Hypertension: N 8. Opioid Therapy greater than 6 weeks: Y Opiate Contract Signed: 03/02/16 9. Risk Assessment Tool Provided: LOW RISK 07/11 10. Functional Assessment Tool: 11. Recreational Drug Use: Never Drug Type: Tobacco Use: Never Smoker Tobacco Type: Amount or Packs/day: How Many Years: Alcohol Use: Past use Frequency: Quant:
== END | disposition home or self-care (01) ==
LOC: PAIN 06:48
DX: M47.816 Spondylosis without myelopathy or radiculopathy, lumbar region (principal); M51.36 Other intervertebral disc degeneration, lumbar region; G89.29 Other chronic pain; F32.89 Other specified depressive episodes; Z79.891 Long term (current) use of opiate analgesic; Z79.899 Other long term (current) drug therapy; Z98.890 Other specified postprocedural states

== ENCOUNTER → 2019-02-20 | Outpatient (CLI) | payer OTHER ==
[~2019-02-20] VITALS: Ht 172.7 cm; Wt 76.3 kg
[~2019-02-20] MED LIST changes: +NUVIGIL200 MG PO; +SUBOXONE 8 MG-1 EAC3 BUCCAL; +SYNTHROID50 MCG PO
--- NOTE | ~2019-02-20 | HPC ---
[facility] [address] [place] [address] PAIN MANAGEMENT CONSULTATION Name: FATIMAH LI ARIANNA Room #: REG TEZ Perea#: [id number] Admission: 02/20/19 Attend Phys: Jose Blount MD Discharge: Date of : 42 Report #: [id number] THIS REPORT FOR: //name// CC: Physician staff ANAMARIA PEDERSON DO Jose Bolunt DATE OF SERVICE: 02/20/2019 HISTORY OF PRESENT ILLNESS: Followup visit for chronic low back pain with spondylitic changes. Degenerative disk disease with facet arthropathy. Manages with high risk medications. The patient is here today with his to discuss his ongoing chronic pain. He complains of several things. He complains that his low back limits his ability to do things. This dates back several years and he sees a point in time following an accident when he became much more debilitated. The pain is all across his lumbosacral region but does not radiate. He has no radicular symptoms at this time. He also complains of fatigue. He complained bitterly day in and day out to his . She has discussed this with me on the side. He complains that he is unable to do yard work and other activities that he enjoys so he simply lays in bed all day long. He does not have a surgical problem. We have treated him with interventional medicine treatments including injections of the facet joints and he has had radiofrequency ablation with limited success. Pain medications have been helpful in alleviating his pain, but not enough to improve his day-to-day activities. While relying on them, he also adamantly today reported that he wished he did not have to remain on them. PQRS REVIEW: 1. Positive for spondylitic changes of the spine. Other joints may be arthritic but he does not complain of them. 2. He is lean and fit with a BMI of 26.2. 3. Vital signs: Blood pressure 112/70, heart rate 70, respirations 16. 4. Pain intensity 5-6 on an average daily basis. 5. He does fall and has not fallen in the last 3 months. 6. No blood thinners. 7. No history of hypertension. 8. He is on an opioid agreement, which we have reviewed. He is at low risk by the opioid risk tool for addiction. His functional assessment tool is 0. SOCIAL HISTORY: He denies use of tobacco or alcohol. [facility] [address] [place] [address] PAIN MANAGEMENT CONSULTATION Name: FATIMAH LI Room #: REG TEZ MeansVioletta#: [id number] Admission: 02/20/19 Attend Phys: Jose Blount MD Discharge: Date of : 42 Report #: [id number] PHYSICAL EXAMINATION: VITAL SIGNS: As noted above. GENERAL: He is anxious and complains again to me bitterly about his back pain and how it has affected his life. He is moderately depressed. EXTREMITIES: He moves easily from sitting to standing position. His gait is nonantalgic. CARDIAC: Rhythm is regular, without murmur. CHEST: Clear to auscultation. ABDOMEN: Soft. There is no organomegaly. No bruits appreciated. SPINE AND MUSCULOSKELETAL: Reveals tenderness across the lumbosacral segment, but no muscle spasm. He has pain with flexion, extension, rotation, [id number] tilt. Straight leg raising is negative. Strength is normal in lower extremities. Sensation is normal. IMPRESSION: 1. Lumbar spondylosis. We first discussed his medication at some length. He is on a fentanyl patch 50 mcg in addition to oxycodone 5/325, which he takes in supplement twice a day. I have suggested that perhaps we try to take him off of these medications with the use of Suboxone. I explained the medication to the patient and to his . We will avoid any withdrawal with this medication. I have written his initial prescription for Suboxone 02/07 with the use of films and I have given him instructions. He will also receive instructions from the pharmacist. I have only given him 1 week. I will see him back at that time to assess. 2. Facet injections have been helpful in the past. It was my hope that by performing facet injections, which may provide even temporary relief will help us with the transition off of the fentanyl, oxycodone combination. He is anxious to proceed with the injections given his previous benefit, even though short term. Total time in consultation today was 45 minutes. PROCEDURE: He was taken to fluoroscopic suite for the facet injections. He was placed prone, skin prepped with ChloraPrep. Skin anesthetized first on the left. I advanced needles into the L2-L3, L3-L4, L4-L5 facet joints. After negative aspiration, gently injected 0.5 mL of 0.5% bupivacaine mixed with 10 mg of triamcinolone. The procedure was then repeated on the right. There were no complications. He was observed in recovery room for 45 minutes and discharged. [facility] [address] [place] [address] PAIN MANAGEMENT CONSULTATION Name: FATIMAH LI Room #: REG CLI Miguelangel.#: [id number] Admission: 02/20/19 Attend Phys: Jose Blount MD Discharge: Date of : 42 Report #: [id number] PLAN: To follow up in 1 week on the medication changes described above. By: [id number] Jose Blount MD /nt
[2019-02-20 11:32] VITALS: BP 114/68
--- NOTE | 2019-02-20 11:40 | NUR ---
Pain Clinic Assessment: 1. History of Osteoarthritis: Not Applicable History of Rheumatoid Arthritis: Not Applicable 2. Height: 5 ft. 8 in. 172.7 cm. Weight: 168.2 lb. oz. 76.295 kg. Patient's BMI: 25.6 3. Vital Signs: BP: 114/68 Pulse: 72 Resp: 18 Temp: 02 Sat: 97 ECG Mon: 4. Pain Intensity: 5 5. Fall Risk: Dizziness: N Needs help standing or walking: N Fallen in the last 3 months: N Fall risk comments: 6. Patient on Blood Thinner: None 7. History of Hypertension: N 8. Opioid Therapy greater than 6 weeks: Y Opiate Contract Signed: 03/02/16 9. Risk Assessment Tool Provided: LOW RISK 07/11 10. Functional Assessment Tool: 11. Recreational Drug Use: Never Drug Type: Tobacco Use: Never Smoker Tobacco Type: Amount or Packs/day: How Many Years: Alcohol Use: Past use Frequency: Quant:
== END | disposition home or self-care (01) ==
LOC: PAIN 06:50
DX: M47.816 Spondylosis without myelopathy or radiculopathy, lumbar region (principal); G89.29 Other chronic pain; M54.5 Low back pain; Z79.891 Long term (current) use of opiate analgesic; Z79.899 Other long term (current) drug therapy; Z98.890 Other specified postprocedural states

== ENCOUNTER → 2019-02-25 | Outpatient (CLI) | payer OTHER ==
[~2019-02-25] VITALS: Ht 172.7 cm; Wt 75.0 kg
[2019-02-25 10:01] VITALS: BP 123/91
--- NOTE | 2019-02-25 10:19 | NUR ---
Pain Clinic Assessment: 1. History of Osteoarthritis: Not Applicable History of Rheumatoid Arthritis: Not Applicable 2. Height: 5 ft. 8 in. 172.7 cm. Weight: 165.4 lb. oz. 75.025 kg. Patient's BMI: 25.2 3. Vital Signs: BP: 123/91 Pulse: 70 Resp: 14 Temp: 02 Sat: 98 ECG Mon: 4. Pain Intensity: 3 5. Fall Risk: Dizziness: N Needs help standing or walking: N Fallen in the last 3 months: N Fall risk comments: 6. Patient on Blood Thinner: None 7. History of Hypertension: N 8. Opioid Therapy greater than 6 weeks: Y Opiate Contract Signed: 03/02/16 9. Risk Assessment Tool Provided: LOW RISK 07/11 10. Functional Assessment Tool: 11. Recreational Drug Use: Never Drug Type: Tobacco Use: Never Smoker Tobacco Type: Amount or Packs/day: How Many Years: Alcohol Use: Past use Frequency: Quant:
--- NOTE | 2019-02-26 07:51 | HPC ---
[facility] [address] [place] [address] PAIN MANAGEMENT CONSULTATION Name: FATIMAH LI ARIANNA Room #: REG Ignacio Perea#: [id number] Admission: 02/25/19 Attend Phys: Nubia Buckley Discharge: Date of : 42 Report #: [id number] THIS REPORT FOR: //name// CC: Nubia Buckley Physician staff ANAMARIA PEDERSON DATE OF SERVICE: 02/25/2019 CHIEF COMPLAINT: Chronic low back pain with spondylitic changes. HISTORY OF PRESENT ILLNESS: This is a 78-year-old gentleman who returns to the clinic today with his to discuss his trial of Suboxone that was started last week. The patient also had an epidural injection that he feels is at least 60% better, but again it has only been a week. He rates his pain today a 3/10. The pain is located in his lower back. He feels that the Suboxone that we rotated him to from his fentanyl patches and oxycodone is working about the same as the other medicines. He has only been taking it twice a day as prescribed. He feels that sometimes he is a little shaky and feels a little jittery, unsure if those are withdrawal symptoms. He tells me he does not have a headache or nausea, diarrhea or any other withdrawal type symptoms, just occasionally a little shaky, but here today he has not eaten anything since he woke up either. The patient tells me he does not like that after taste of the Suboxone that lives in his mouth. Other than that, he has no complaints of that medicine at this point. ALLERGIES: No known drug allergies. CURRENT LIST OF MEDICATIONS: Suboxone 8/2 b.i.d., Synthroid, probiotic, Protonix, Voltaren gel, Celebrex, Zocor, clonazepam, Celexa and multivitamin. PQRS: 1. He has spondylitic changes in his spine, other joints are arthritic, numerous joints involved. Height is 5 feet 8 inches, weight is 165, BMI is 25. 2. Vital signs 123/91, pulse is 70, respirations 14, oxygen sat is 98, pain score is 3. Fall risk, denies dizziness, does not need walking or standing, has not fallen in the last 3 months. The patient is not on any blood thinners and does not take medicine for hypertension. Opioid therapy is greater than 6 weeks; therefore, an opioid signed contract is on the chart. His risk assessment tool is low. Functional assessment is 470. 3. Recreational drug use, he denies. He is not a smoker and does alcohol use in the past. According to the prescription monitoring system, the patient is filling appropriately for his medication. There is a recent drug screen from the past in the chart as well that is appropriate for his medications. [address] [address] PAIN MANAGEMENT CONSULTATION Name: FATIMAH LI ARIANNA Room #: REG TEZ Perea#: [id number] Admission: 02/25/19 Attend Phys: Nubia Buckley Discharge: Date of : 42 Report #: [id number] PHYSICAL EXAMINATION: GENERAL: This is an alert and orientated, slightly anxious 78-year-old gentleman who appears his stated age, placing his current pain score at 3/10 today. HEENT: Normocephalic, atraumatic. Extraocular eye muscles are intact. Mucous membranes are moist. EXTREMITIES: Moves from the chair to sitting without difficulty. MUSCULOSKELETAL: Gait is nonantalgic. He has tenderness across his lumbosacral spine. Strength is normal and symmetrical in his bilateral lower extremities. ASSESSMENT: 1. Lumbar spondylosis. 2. Chronic low back pain. 3. Degenerative disk disease with facet arthroscopy. 4. Management of high risk medications under terms of written opioid agreement. We reviewed the fact that opiate medications are being used to provide analgesia adequate to support activities of daily living, not attempting to achieve a specific pain score on the 0-10 Visual Analog Scale. The current opiate medications are providing sufficient analgesia to allow the patient to participate in activities of daily living. The patient is not exhibiting any aberrant behavior suggestive of drug diversion. The patient is not having any adverse reactions to medications. The patient is not suffering from daytime somnolence or mental acuity changes. The patient is managing opiate-induced constipation with appropriate wibr-kmv-kbdpqqo agents and dietary considerations. The patient was counseled on concern for caution with operating a motor vehicle while using opiate medications. A physical exam was performed and the patient's functional status was evaluated. All patients with back pain were advised against the bed rest greater than 4 days and were advised to return to normal activities. Pain score assessment was noted and the treatment plan was reviewed with the patient. All current medications, both prescribed and OTC were reviewed and reconciled on the electronic medical record. Tobacco screening was accomplished and smoking cessation was advised when indicated. BMI was noted and diet/exercise modification was recommended for all patients following outside normal parameters. I reviewed with the patient today their responsibilities to safeguard prescription medications, reviewed their responsibility to utilize medications only as prescribed by the physician. They are to seek and receive pain medications only from 1 physician group ( [facility]). They are to use 1 pharmacy and keep the clinic informed if they change pharmacies. Their responsibilities include making followup visits in a timely fashion and to avoid abrupt discontinuation of medication usage. Their responsibilities further [address] [place] [address] PAIN MANAGEMENT CONSULTATION Name: FATIMAH LI Room #: REG [facility].#: [id number] Admission: 02/25/19 Attend Phys: Nubia BECKY Buckley Discharge: Date of : 42 Report #: [id number] include bringing their medications (bottles from the pharmacy with residual pills) to the visit for possible confirmation of pill counts and the patient understands it is their responsibility to submit to random drug screens to ensure both that the medications prescribed are present, and that no other controlled substances are present. All prescriptions provided today were generated electronically. PLAN: 1. We discussed treatment options with the patient today. The patient finds that the epidural that he had last week was beneficial giving him at least 60% so far from his injection. 2. The patient feels that the Suboxone is controlling his pain the same amount as fentanyl and oxycodone did, therefore with discussion with Dr. Blount who did see the patient as well, we decided to give a trial at least 1 month. The patient is to call if it becomes not helpful. Scripts given today for Suboxone / either tablets or films #60 with 2 additional refills. 3. The patient and thought it might be expensive. We did talk about the Good-rx and currently we want him to have a trial for 1 month and we will discuss it further. The patient was instructed to call for an appointment in 1 month's time. 4. Care was given with collaboration with Dr Blount today who did see the pt as well today. <ELECTRONICALLY SIGNED> By: Nubia Buckley 02/26/19 [id number] Nubia Buckley /nt
== END ==
LOC: PAIN 06:47
DX: M51.36 Other intervertebral disc degeneration, lumbar region (principal); M47.816 Spondylosis without myelopathy or radiculopathy, lumbar region; Z79.899 Other long term (current) drug therapy

== ENCOUNTER → 2019-05-22 | Outpatient (CLI) | payer OTHER ==
[~2019-05-22] VITALS: Ht 172.7 cm; Wt 73.9 kg
[2019-05-22 10:42] VITALS: BP 123/71
--- NOTE | 2019-05-22 10:57 | NUR ---
Pain Clinic Assessment: 1. History of Osteoarthritis: B/L KNEES History of Rheumatoid Arthritis: Not Applicable 2. Height: 5 ft. 8 in. 172.7 cm. Weight: 163.0 lb. oz. 73.936 kg. Patient's BMI: 24.8 3. Vital Signs: BP: 123/71 Pulse: 92 Resp: 16 Temp: 02 Sat: 96 ECG Mon: 4. Pain Intensity: 3-4-TODAY 5. Fall Risk: Dizziness: N Needs help standing or walking: N Fallen in the last 3 months: N Fall risk comments: 6. Patient on Blood Thinner: None 7. History of Hypertension: N 8. Opioid Therapy greater than 6 weeks: Y Opiate Contract Signed: 03/02/16 9. Risk Assessment Tool Provided: LOW RISK 07/11 10. Functional Assessment Tool: 11. Recreational Drug Use: Never Drug Type: Tobacco Use: Never Smoker Tobacco Type: Amount or Packs/day: How Many Years: Alcohol Use: Past use Frequency: Quant:
--- NOTE | 2019-05-23 09:55 | HPC ---
[facility] [address] [place] [address] PAIN MANAGEMENT CONSULTATION Name: FATIMAH LI Room #: REG Ignacio Perea#: [id number] Admission: 05/22/19 Attend Phys: Nubia Buckley Discharge: Date of : 42 Report #: [id number] THIS REPORT FOR: //name// CC: Nubia Buckley Physician staff ANAMARIA Martin MD DATE OF SERVICE: 05/22/2019 CHIEF COMPLAINT: Chronic low back pain with spondylitic changes. HISTORY OF PRESENT ILLNESS: This is a 79-year-old gentleman who returns to the pain clinic today for a refill of his medications that he uses to help treat his ongoing low back pain with occasional injections as well. He reports that his pain is in his low back with no radicular symptoms present today. He occasionally has a sore neck. He notes too. It is an achy soreness rating his pain of 3-4 today. It is worse with activity and lifting, but he feels that he lies down, he is better and he thinks that the Suboxone is working quite well. His only complaint is that it does not last quite 12 hours to control most of his pain, but if he lies down then his pain is relieved also. He denies any problems with constipation or daytime sleepiness from this medicine. The patient tells me that he did have a flare recently for several days, he did not feel the Suboxone was adequate and was wanting a breakthrough pain pills during that time, he had carried a battery across the parking lot into the [facility] location and that hurt his back for several days after carrying this heavy battery. I did explain to him that he should have gotten a cart that even myself that would have been hard to carry a long distance. ALLERGIES: No known drug allergies. MEDICATIONS: Wellbutrin 150 mg daily, Suboxone 8/2 b.i.d., Synthroid 50 mcg, Nuvigil 200 mg, lactobacillus daily, probiotic 440 mg b.i.d., Voltaren gel as needed, Celebrex 200 mg b.i.d., Zocor 400 mg, clonazepam 1.5 mg at bedtime, Celexa 20 mg daily, multivitamin. PQRS: 1. He has spondylitic changes in his lumbar spine as well as osteoarthritis in his knees. 2. Denies any rheumatoid arthritis. 3. Height is 5 feet 8 inches, weight is 163, BMI is 24. 4. Vital signs 123/71, pulse is 92, respirations 16, oxygen sat is 96. 5. Pain is 3-4. 6. Denies dizziness, does not need help walking or standing, has not fallen in [address] [address] PAIN MANAGEMENT CONSULTATION Name: GUILLERMOFATIMAH ARIANNA Room #: REG TEZ Perea#: [id number] Admission: 05/22/19 Attend Phys: Nubia Buckley Discharge: Date of : 42 Report #: [id number] the last 3 months. 7. The patient is not on any blood thinners or hypertension medicines. 8. Opioid therapy is greater than 6 weeks; therefore, an opioid signed contract is on the chart. His risk assessment tool is low. Functional assessment is 4/7. 9. Recreational drug use, he denies. He is not a smoker. He has past alcohol use. According to the prescription monitoring system, the patient is filling appropriately for his medications. He is filling his opioids only from Dr. Jose Blount in a timely fashion. There is a recent drug screen on the chart that is appropriate for his medication as well. PHYSICAL EXAMINATION: GENERAL: This is alert and orientated, 79-year-old gentleman who appears his stated age, placing his current pain score today at 3-4. HEENT: Normocephalic, atraumatic. Extraocular eye muscles are intact. Mucous membranes moist. He is wearing glasses. MUSCULOSKELETAL: He moves from sitting to standing without any difficulty with no edema noted in his lower extremities. MUSCULOSKELETAL: His gait is nonantalgic. His lower extremity strength is normal and symmetrical at 5/5. He has tenderness in his lumbosacral spine and his paraspinal musculature. ASSESSMENT: 1. Lumbar spondylosis. 2. Chronic low back pain. 3. Degenerative disk disease with facet arthroscopy. 4. Management of high risk medications under terms of written opioid agreement. We reviewed the fact that opiate medications are being used to provide analgesia adequate to support activities of daily living, not attempting to achieve a specific pain score on the 0-10 Visual Analog Scale. The current opiate medications are providing sufficient analgesia to allow the patient to participate in activities of daily living. The patient is not exhibiting any aberrant behavior suggestive of drug diversion. The patient is not having any adverse reactions to medications. The patient is not suffering from daytime somnolence or mental acuity changes. The patient is managing opiate-induced constipation with appropriate izsg-rhb-xmyvlni agents and dietary considerations. The patient was counseled on concern for caution with operating a motor vehicle while using opiate medications. PLAN: 1. We discussed treatment options with the patient today. The patient feels that the Suboxone is adequately controlling his pain, though occasionally he would like a breakthrough pain medicine. I encouraged him that he can take [facility] [address] [place] [address] PAIN MANAGEMENT CONSULTATION Name: FATIMAH LI Room #: REG [facility].#: [id number] Admission: 05/22/19 Attend Phys: Nubia Buckley Discharge: Date of : 42 Report #: [id number] Tylenol Extra Strength up to 6 total tablets a day no more and those are only if needed. He will continue his Suboxone b.i.d. 02/07, scripts given today for #60 with 2 additional refills. This is a total of 3 months medication. 2. The patient tells me of a recent flare when he was carrying heavy objective of a battery. I encouraged him to get a cart for anything heavy and also encouraged him to do yard work at smaller, shorter intervals then take a rest and then continue his work, has to not tire and hurt his back. The patient's is agreeable with making sure he follows this plan of care. No breakthrough medications are given. 3. The patient is seen in collaboration with Dr. Jose Blount today, who did see the patient as well. The patient will follow up in 3 months after his has had her knees replaced and is able to help get him to the office again. <ELECTRONICALLY SIGNED> By: Nubia Buckley 05/23/19 [id number] Nubia Buckley /nt
== END ==
LOC: PAIN 06:58
DX: M47.816 Spondylosis without myelopathy or radiculopathy, lumbar region (principal); M51.36 Other intervertebral disc degeneration, lumbar region; G89.29 Other chronic pain; Z79.891 Long term (current) use of opiate analgesic

== ENCOUNTER → 2019-08-21 | Outpatient (CLI) | payer OTHER ==
[~2019-08-21] VITALS: Ht 172.7 cm; Wt 73.0 kg
[2019-08-21 12:51] VITALS: BP 114/71
--- NOTE | 2019-08-21 12:55 | NUR ---
Pain Clinic Assessment: 1. History of Osteoarthritis: B/L KNEES History of Rheumatoid Arthritis: Not Applicable 2. Height: 5 ft. 8 in. 172.7 cm. Weight: 161.0 lb. oz. 73.029 kg. Patient's BMI: 24.5 3. Vital Signs: BP: 114/71 Pulse: 104 Resp: 18 Temp: 02 Sat: 96 ECG Mon: 4. Pain Intensity: 5-6 5. Fall Risk: Dizziness: N Needs help standing or walking: N Fallen in the last 3 months: N Fall risk comments: 6. Patient on Blood Thinner: None 7. History of Hypertension: N 8. Opioid Therapy greater than 6 weeks: Y Opiate Contract Signed: 03/02/16 9. Risk Assessment Tool Provided: LOW RISK 1 10. Functional Assessment Tool: 11. Recreational Drug Use: Never Drug Type: Tobacco Use: Never Smoker Tobacco Type: Amount or Packs/day: How Many Years: Alcohol Use: Past use Frequency: Quant:
--- NOTE | 2019-08-26 08:51 | HPC ---
[facility] [address] [address] PAIN MANAGEMENT CONSULTATION Name: FATIMAH LI [facility] [id number] Admission: 08/21/19 Attend Phys: Nubia Buckley Discharge: Date of : 42 Report #: [id number] THIS REPORT FOR: cc: ANAMARIA PEDERSON DO Physician not on staff Nubia Buckley ~ THIS REPORT FOR: //name// CC: Nubia Buckley Physician staff ANAMARIA PEDERSON DATE OF SERVICE: 08/21/2019 CHIEF COMPLAINT: Chronic low back pain with spondylitic changes. HISTORY OF PRESENT ILLNESS: This is a pleasant 79-year-old gentleman who returns to the Pain Clinic today with his for a medication refill. He reports that he is having pain of 5-6/10 today. Feels that it has been worse the past few days with the weather changes. He has also been having to do more around the house since his recently had a total knee replaced. He is having to assist with cleaning and cooking and did have to drive here today, which normally that is her responsibility. The patient reports low back pain that is a sore, aching feeling. He feels the Suboxone as beneficial as well as resting and lying down. Today, he would like refills of this medication. He denies any problems with constipation. 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 ALLERGIES: No known drug allergies. CURRENT LIST OF MEDICINES: Suboxone 02/07, buprenorphine, Synthroid, Nuvigil lactobacillus, Protonix, Voltaren gel, Cymbalta, simvastatin, clonazepam, Celexa and multivitamin. PQRS: 1. He has history of osteoarthritis in his bilateral knees as well as in his spine. Denies any rheumatoid arthritis. 2. Height is 5 feet 8 inches, weight is 161, BMI is 24. 3. Vital signs 114/71, pulse is 104, respirations 18, oxygen sat is 96. 4. Pain score is 5/10. 5. Denies dizziness, does not need help walking or standing, has not fallen in the last 3 months. 6. The patient is not on any blood thinners or medicines for hypertension. Opioid therapy is greater than 6 weeks; therefore, an opioid signed contract is on the chart. Risk assessment tool is low. Functional assessment is . 7. Recreational drug use, he denies. He is not a smoker and does not drink [address] [address] PAIN MANAGEMENT CONSULTATION Name: FATIMAH LI [id number] Admission: 08/21/19 Attend Phys: Nubia Buckley Discharge: Date of : 42 Report #: [id number] alcohol. According to the prescription monitoring system, he is due to fill his medications next week, filling them in a timely fashion only by Dr. Jose Blount. According to the CDC guidelines, his morphine mEq per day is 16. PHYSICAL EXAMINATION: GENERAL: This is alert and orientated 79-year-old gentleman who appears his stated age, placing his current pain score at 5-6/10. HEENT: Normocephalic, atraumatic. Mucous membranes are moist. He does wear glasses. MUSCULOSKELETAL: Gait is nonantalgic. His lower extremity strength judged to be 5/5 that is symmetrical and sensation and tone from L5-S1. He has tenderness in his lumbosacral spine and paraspinal musculature. He moves from sitting to standing without difficulty. ASSESSMENT: 1. Lumbar spondylosis. 2. Chronic low back pain. 3. Degenerative disk disease with facet arthroscopy. 4. Management of high risk medications under terms of written opioid agreement. We reviewed the fact that opiate medications are being used to provide analgesia adequate to support activities of daily living, not attempting to achieve a specific pain score on the 0-10 Visual Analog Scale. The current opiate medications are providing sufficient analgesia to allow the patient to participate in activities of daily living. The patient is not exhibiting any aberrant behavior suggestive of drug diversion. The patient is not having any adverse reactions to medications. The patient is not suffering from daytime somnolence or mental acuity changes. The patient is managing opiate-induced constipation with appropriate ybyx-kiu-vdojgmd agents and dietary considerations. The patient was counseled on concern for caution with operating a motor vehicle while using opiate medications. A physical exam was performed and the patient's functional status was evaluated. All patients with back pain were advised against the bed rest greater than 4 days and were advised to return to normal activities. Pain score assessment was noted and the treatment plan was reviewed with the patient. All current medications, both prescribed and OTC were reviewed and reconciled on the electronic medical record. Tobacco screening was accomplished and smoking cessation was advised when indicated. BMI was noted and diet/exercise modification was recommended for all patients following outside normal parameters. I reviewed with the patient today their responsibilities to safeguard prescription medications, reviewed their responsibility to utilize medications [address] [address] PAIN MANAGEMENT CONSULTATION Name: FATIMAH LI Room #: REG TEZ Perea#: [id number] Admission: 08/21/19 Attend Phys: Nubia Buckley Discharge: Date of : 42 Report #: [id number] only as prescribed by the physician. They are to seek and receive pain medications only from 1 physician group ( [facility]). They are to use 1 pharmacy and keep the clinic informed if they change pharmacies. Their responsibilities include making followup visits in a timely fashion and to avoid abrupt discontinuation of medication usage. Their responsibilities further include bringing their medications (bottles from the pharmacy with residual pills) to the visit for possible confirmation of pill counts and the patient understands it is their responsibility to submit to random drug screens to ensure both that the medications prescribed are present, and that no other controlled substances are present. All prescriptions provided today were generated electronically. PLAN: 1. We discussed treatment options with the patient today. The patient finds his Suboxone is very beneficial in controlling his pain, though he is wondering along with his if he will ever be able to go off this medicine. I explained to him that if he would like to trial a decrease in his medicine when the weather is slightly improved outside, we will try to decrease him to a lower dose of Suboxone and see how he does. If he does adequately, we can try and decrease it again, but he may be on this medicine lifelong to and opioid medication. The patient and verbalized understanding. 2. Medicines were sent to [facility] for 3 months. The patient is seen in collaboration with Dr. Jose Blount today who I did discuss this case as well. <ELECTRONICALLY SIGNED> By: Nubia Buckley 08/26/19 0851 [id number] Nubia Buckley /cynthia
== END ==
LOC: PAIN 07:52
DX: M47.816 Spondylosis without myelopathy or radiculopathy, lumbar region (principal); M51.36 Other intervertebral disc degeneration, lumbar region; G89.29 Other chronic pain; Z79.891 Long term (current) use of opiate analgesic; Z79.899 Other long term (current) drug therapy

== ENCOUNTER → 2019-10-30 | Outpatient (CLI) | payer OTHER ==
[~2019-10-30] MED LIST changes: +VOLTAREN GEL 1100 GM TOP
--- NOTE | ~2019-10-30 | HPC ---
[facility] [place] [address] PAIN MANAGEMENT CONSULTATION Name: FATIMAH LI Room #: REG Ignacio Miguelangel.#: [id number] Admission: 10/30/19 Attend Phys: Nubia Buckley Discharge: Date of : 44 Report #: [id number] THIS REPORT FOR: cc: ANAMARIA PEDERSON Richard L. MD Hocker, Amanda CNS ~ CC: Nubia Blount MD DATE OF SERVICE: 10/30/2019 This is a tele-med appointment for this patient, due to the coronavirus we are speaking via the telephone from 1345 to 1402. CHIEF COMPLAINT: Chronic low back pain and spondylitic changes. HISTORY OF PRESENT ILLNESS: This is a pleasant 79-year-old gentleman who I am speaking with via the telephone today for a tele-med appointment for refills of his Suboxone. Patient is reporting a pain score to me today of 3-4. He feels that his pain is very well controlled in his lower back. He does report that he is trying to be more active now that the weather has improved. He reports he is walking outside, but he has not left his homestead for a month and a half per his report. He is very scared to be getting COVID and if he does need to go to the pharmacy, which he will be doing next week. He informed me he is going to wear gloves and a mask. The patient does report that he does not have much of an appetite recently and he has gone to the doctor's office to get lab work drawn and his weight was down to 151 pounds per his report that is down 10 pounds in the last 2 months. He reports he has been trying to eat ice cream, but he has no appetite. His primary care doctor is running test on him. Today, his pain again is in his lower back, worse with activity, lifting and shopping, but medications as well as lying down he finds is very beneficial. ALLERGIES: No known drug allergies. Current list of medications that we reviewed were Suboxone 02/07, bupropion, levothyroxine, Nuvigil, lactobacillus, Protonix, diclofenac gel as needed, Celebrex, simvastatin, clonazepam, ____, multivitamin. PQRS: 1. He has osteoarthritis in his knees and spine. Denies any rheumatoid arthritis. Per his report his weight is 151. Vital signs were not obtained today due to this being a teleconference. He denies dizziness, does not need help walking or standing. He has not fallen in the last 3 months. 2. The patient is not on any blood thinners [place] [address] PAIN MANAGEMENT CONSULTATION Name: GUILLERMOFATIMAH ARIANNA Room #: REG TEZ Perea#: [id number] Admission: 10/30/19 Attend Phys: Nubia Buckley Discharge: Date of : 44 Report #: [id number] 3. Opiate therapy is greater than 6 weeks; therefore, an opioid signed contract is on the chart. His risk assessment tool is low. Functional assessment is . 4. Recreational drug use, he denies. He is not a smoker and does not drink alcohol. According to the prescription monitoring system, the patient is filling his medicines appropriately. He is due to fill his Suboxone in early November. He does take clonazepam as well, which he has been for quite some time. This benzodiazepine opioid combination, he has not had any issues or side effects. According to the CDC guidelines, his morphine milliequivalent is 16. Physical exam, this is a review of systems since it is a tele-med appointment. He is alert and orientated 79-year-old gentleman who is answering all my questions appropriately. His pain score today per his report is a 3-4. The patient tells me he does wear glasses. He reports pain in the lower portion of his back that radiates into his legs. He does walk very slowly per his report and has not fallen. ASSESSMENT: 1. Lumbar spondylosis. 2. Chronic low back pain. 3. Degenerative disk disease with facet arthroscopy. 4. Weight loss, unknown origin of 10 pounds in less than 2 months. 5. Management of high risk medications under terms of written opioid agreement. We reviewed the fact that opiate medications are being used to provide analgesia adequate to support activities of daily living, not attempting to achieve a specific pain score on the 0-10 Visual Analog Scale. The current opiate medications are providing sufficient analgesia to allow the patient to participate in activities of daily living. The patient is not exhibiting any aberrant behavior suggestive of drug diversion. The patient is not having any adverse reactions to medications. The patient is not suffering from daytime somnolence or mental acuity changes. The patient is managing opiate-induced constipation with appropriate irjt-pab-kpgbqok agents and dietary considerations. The patient was counseled on concern for caution with operating a motor vehicle while using opiate medications. A physical exam was performed and the patient's functional status was evaluated. All patients with back pain were advised against the bed rest greater than 4 days and were advised to return to normal activities. Pain score assessment was noted and the treatment plan was reviewed with the patient. All current medications, both prescribed and OTC were reviewed and reconciled on the electronic medical record. Tobacco screening was accomplished and smoking cessation was advised when indicated. BMI was noted and diet/exercise [facility] [address] [place] [address] PAIN MANAGEMENT CONSULTATION Name: FATIMAH LI Room #: REG TEZ Miguelangel.#: [id number] Admission: 10/30/19 Attend Phys: Nubia BECKY Buckley Discharge: Date of : 42 Report #: [id number] modification was recommended for all patients following outside normal parameters. I reviewed with the patient today their responsibilities to safeguard prescription medications, reviewed their responsibility to utilize medications only as prescribed by the physician. They are to seek and receive pain medications only from 1 physician group ( [facility]). They are to use 1 pharmacy and keep the clinic informed if they change pharmacies. Their responsibilities include making followup visits in a timely fashion and to avoid abrupt discontinuation of medication usage. Their responsibilities further include bringing their medications (bottles from the pharmacy with residual pills) to the visit for possible confirmation of pill counts and the patient understands it is their responsibility to submit to random drug screens to ensure both that the medications prescribed are present, and that no other controlled substances are present. All prescriptions provided today were generated electronically. PLAN: 1. We discussed treatment options with the patient today. His was present for part of this conversation over the phone. She did review the medicines with me today. We will refill his Suboxone 02/07 and send this to his pharmacy for #60 tablets with 2 additional refills. 2. We will refill his diclofenac gel since he has been having difficulty getting this from his primary care doctor. This is not a medicine we typically write for him, but he does find beneficial. We sent that electronically as well to [facility]'s pharmacy. 3. We did talk about in great length his overall weight loss. He has continued to lose weight on a steady decline, a year ago at this time the patient did weigh 171 pounds and per his report today 151. He has not been trying to lose any weight. I encouraged him to have high protein shakes, ice cream or [place] [employer] breakfast, but more importantly continue to follow up with his primary care doctor regarding this issue. He verbalizes understanding. 4. The patient discussed via the telephone today with Dr. Blount who collaborated care who is present with me today. By: [id number] Nubia Buckley /cynthia
== END ==
LOC: TELEPC 07:37 → PAIN 16:25
DX: M54.16 Radiculopathy, lumbar region (principal); R63.4 Abnormal weight loss; F11.20 Opioid dependence, uncomplicated; Z79.899 Other long term (current) drug therapy

== ENCOUNTER → 2020-05-10 | Outpatient (CLI) | payer OTHER ==
[~2020-05-10] VITALS: Ht 172.7 cm; Wt 2.3 kg
[~2020-05-10] MED LIST changes: +BUPRENORPHIN-N1 EACH PO; +FOLIXAPURE5000 UNIT PO; +SUBOXONE 8 MG-1 EAC3 SUBLING; +VITAMIN B12-FO1 EAC1 PO; +ZUBSOLV 8.6-2.1 EACH PO; +ZUBSOLV 8.6-2.1 EACH SUBLING
[2020-05-10 13:05] VITALS: BP 25/7
--- NOTE | 2020-05-10 13:14 | NUR ---
Pain Clinic Assessment: 1. History of Osteoarthritis: B/L KNEES History of Rheumatoid Arthritis: Not Applicable 2. Height: 5 ft. 8 in. 172.7 cm. Weight: 5.0 lb. oz. 2.268 kg. Patient's BMI: 0.8 3. Vital Signs: BP: 25/7 Pulse: 75 Resp: 6 Temp: 02 Sat: 92 ECG Mon: 4. Pain Intensity: 6 5. Fall Risk: Dizziness: N Needs help standing or walking: N Fallen in the last 3 months: Y Fall risk comments: 6. Patient on Blood Thinner: None 7. History of Hypertension: N 8. Opioid Therapy greater than 6 weeks: Y Opiate Contract Signed: 03/02/16 9. Risk Assessment Tool Provided: LOW RISK 0 10. Functional Assessment Tool: 65/70 11. Recreational Drug Use: Never Drug Type: Tobacco Use: Never Smoker Tobacco Type: Amount or Packs/day: How Many Years: Alcohol Use: Past use Frequency: Quant:
--- NOTE | 2020-05-11 09:10 | HPC ---
[facility] [place] [address] [place] [address] PAIN MANAGEMENT CONSULTATION Name: FATIMAH LI Room #: REG Ignacio Perea#: [id number] Admission: 05/10/20 Attend Phys: Nubia Buckley Discharge: Date of : 42 Report #: [id number] CC: Nubia CAMY DACIA DATE OF SERVICE: 05/10/2020 CHIEF COMPLAINT: Chronic pain. HISTORY OF PRESENT ILLNESS: This is a 80-year-old gentleman who returns with his to the pain clinic today to discuss ongoing medication therapy. Dr. Jose Blount did see the patient in January. At that time, he continued him on Suboxone, but switched him from a film to an oral tablet. The goal was to see if the patient noticed any difference in the absorption and also the patient had been complaining of a metallic taste in his mouth when using the films of Suboxone. He does report that his pain is typically well controlled with the Suboxone. The patient has been using the tablets for the past few months, but it is very expensive for them. The cost has gone up from $50 a month to $222 a month. They are reporting to me today that they are unable to afford that higher cost and would like to go back to the film of the Suboxone and he is willing to make it do with the taste using some mouthwash after the film has dissolved. The patient is reporting his pain is located in his lower back, left hip. He has also been having some cervical pain and left shoulder pain. He reports he is doing lots of yard work and moving wood that has been causing him some arm pain. He does continue to use Voltaren gel on a regular basis and does find that helpful at times. He denies any problems with constipation or daytime somnolence as a result of his medication. He reports that he continues to be as active as he would like, but riding in the car and activity does flare his pain that is why he is rating it a 6/10 today. ALLERGIES: No known drug allergies. CURRENT LIST OF MEDICATIONS: Vitamin D, vitamin B12, buprenorphine, naloxone, Voltaren gel, bupropion, Synthroid, Nuvigil, probiotic, Celebrex, Zocor, clonazepam, Celexa, and multivitamin. PQRS: 1. He has bilateral knee osteoarthritis as well as spondylitic changes in his back. He denies any rheumatoid arthritis. 2. Height is 5 feet 8 inches, weight is 150, BMI is 23. 3. Vital signs; blood pressure 125/75, pulse 75, respirations 16, oxygen sat is 92%. 4. Pain score is 6/10. 5. Denies dizziness, does not need help walking or standing, has fallen in the last 3 months. 6. The patient is not on any blood thinners or medicine for hypertension. 7. His opioid therapy is greater than 6 weeks; therefore, an opioid signed contract is on the chart. Risk assessment is low. Functional assessment 65/70. 8. Recreational drug use, he denies. He is not a smoker and does not drink alcohol. According to the prescription monitoring system, the patient is filling appropriately. He is due to fill his medications at the end of this week. PHYSICAL EXAMINATION: GENERAL: This is alert and orientated 80-year-old gentleman who is answering all my questions appropriately. He is a good historian. HEENT: Normocephalic, atraumatic. Extraocular eye muscles are intact. He is very hard of hearing, wearing glasses and a mask. MUSCULOSKELETAL: He moves from sitting to standing without difficulty. He has a nonantalgic gait. Lower extremity strength is symmetrical at 5/5 with tenderness in his lumbosacral region. He has tenderness in his cervical spine that radiates down the left arm today following this, C6-C7 dermatomal distribution. ASSESSMENT: 1. Lumbar spondylosis. 2. Chronic low back pain. 3. Cervical radiculopathy. 4. Degenerative disk disease with facet arthroscopy. 5. Management of high risk medications under terms of written opioid agreement. We reviewed the fact that opiate medications are being used to provide analgesia adequate to support activities of daily living, not attempting to achieve a specific pain score on the 0-10 Visual Analog Scale. The current opiate medications are providing sufficient analgesia to allow the patient to participate in activities of daily living. The patient is not exhibiting any aberrant behavior suggestive of drug diversion. The patient is not having any adverse reactions to medications. The patient is not suffering from daytime somnolence or mental acuity changes. The patient is managing opiate-induced constipation with appropriate gvvp-vlr-aypwchu agents and dietary considerations. The patient was counseled on concern for caution with operating a motor vehicle while using opiate medications. PLAN: 1. We discussed treatment options with the patient today. The patient's last visit with Dr. Blount, he did discuss the taste of his Suboxone films, but he is returning today stating that the tablets were too expensive and would like to return to the films. We will write a prescription for films for 2 months. The patient would like to try some tablets again in Jul to see if it is less expensive on his new prescription drug plan. Script will be written individually for the third month for the tablets to see which is more reasonable for the patient to fill. I explained to them if it is too expensive, then to have the pharmacy notify our office and we will switch to the tablets to film forearm. The patient verbalizes understanding. 2. We did talk about his new pain in his neck that radiates down his left shoulder. He reports moving lots of wood lately and working in the yard. He has been utilizing his diclofenac gel, which is finding beneficial. I explained to him that if it does continue, we may need to have x-ray of his cervical spine and see if any further treatment is needed. 3. The patient is seen in collaboration with Dr. Jose Blount. The patient will return in 3 months. <ELECTRONICALLY SIGNED> By: Nubia Buckley 05/11/20 0910 [id number] Nubia Buckley /nt
== END ==
LOC: PAIN 07:06
PROVIDERS: ATTEND Clinical Nurse Specialist Adult Health
DX: M47.816 Spondylosis without myelopathy or radiculopathy, lumbar region (principal); M51.36 Other intervertebral disc degeneration, lumbar region; M54.12 Radiculopathy, cervical region; Z79.891 Long term (current) use of opiate analgesic; Z79.899 Other long term (current) drug therapy

== ENCOUNTER → 2020-08-05 | Outpatient (CLI) | payer OTHER | LOC: TELEPC 07:02 | PROVIDERS: ATTEND Clinical Nurse Specialist Adult Health | DX: M47.816 Spondylosis without myelopathy or radiculopathy, lumbar region (principal); M54.5 Low back pain; M19.90 Unspecified osteoarthritis, unspecified site; M54.12 Radiculopathy, cervical region; F11.20 Opioid dependence, uncomplicated; Z88.8 Allergy status to other drugs, medicaments and biological substances; Z79.899 Other long term (current) drug therapy ==

== ENCOUNTER → 2020-10-25 | Outpatient (CLI) | payer OTHER ==
[~2020-10-25] VITALS: Ht 172.7 cm; Wt 73.7 kg
[~2020-10-25] MED LIST changes: +FISH OIL 1,0001 EAC9 PO; +PROSCAR 5MG TABL5 M1 PO
[2020-10-25 12:48] VITALS: BP 103/80
--- NOTE | 2020-10-25 13:00 | NUR ---
Pain Clinic Assessment: 1. History of Osteoarthritis: B/L KNEES back History of Rheumatoid Arthritis: Not Applicable 2. Height: 5 ft. 8 in. 172.7 cm. Weight: 162.4 lb. oz. 73.664 kg. Patient's BMI: 24.7 3. Vital Signs: BP: 103/80 Pulse: 75 Resp: 16 Temp: 02 Sat: 97 ECG Mon: 4. Pain Intensity: 7 5. Fall Risk: Dizziness: N Needs help standing or walking: N Fallen in the last 3 months: Y Fall risk comments: 6. Patient on Blood Thinner: None 7. History of Hypertension: N 8. Opioid Therapy greater than 6 weeks: Y Opiate Contract Signed: 03/02/16 9. Risk Assessment Tool Provided: LOW RISK 0 10. Functional Assessment Tool: 65/70 11. Recreational Drug Use: Never Drug Type: Tobacco Use: Never Smoker Tobacco Type: Amount or Packs/day: How Many Years: Alcohol Use: Past use Frequency: Quant:
== END ==
LOC: PAIN 09:37
PROVIDERS: ATTEND Clinical Nurse Specialist Adult Health
DX: M47.816 Spondylosis without myelopathy or radiculopathy, lumbar region (principal); G89.29 Other chronic pain; Z79.891 Long term (current) use of opiate analgesic; Z79.899 Other long term (current) drug therapy

== ENCOUNTER → 2020-10-28 | Outpatient (CLI) | payer OTHER ==
[~2020-10-28] VITALS: Ht 172.7 cm; Wt 75.8 kg
[2020-10-28 14:04] VITALS: BP 138/82
--- NOTE | 2020-10-28 14:17 | NUR ---
Pain Clinic Assessment: 1. History of Osteoarthritis: B/L KNEES back History of Rheumatoid Arthritis: Not Applicable 2. Height: 5 ft. 8 in. 172.7 cm. Weight: 167.0 lb. oz. 75.751 kg. Patient's BMI: 25.4 3. Vital Signs: BP: 138/82 Pulse: 74 Resp: 16 Temp: 02 Sat: 98 ECG Mon: 4. Pain Intensity: 7 TO 8 5. Fall Risk: Dizziness: Y Needs help standing or walking: N Fallen in the last 3 months: N Fall risk comments: 6. Patient on Blood Thinner: None 7. History of Hypertension: N 8. Opioid Therapy greater than 6 weeks: Y Opiate Contract Signed: 03/02/16 9. Risk Assessment Tool Provided: LOW RISK 0 10. Functional Assessment Tool: 65/70 11. Recreational Drug Use: Never Drug Type: Tobacco Use: Never Smoker Tobacco Type: Amount or Packs/day: How Many Years: Alcohol Use: Past use Frequency: Quant:
== END | disposition home or self-care (01) ==
LOC: PAIN 12:14
PROVIDERS: ATTEND Anesthesiology Pain Medicine
DX: M47.816 Spondylosis without myelopathy or radiculopathy, lumbar region (principal); M51.36 Other intervertebral disc degeneration, lumbar region; M54.5 Low back pain; G89.29 Other chronic pain; Z98.890 Other specified postprocedural states; Z79.891 Long term (current) use of opiate analgesic; Z79.899 Other long term (current) drug therapy

== ENCOUNTER → 2021-01-06 | Outpatient (CLI) | payer OTHER ==
[~2021-01-06] VITALS: Ht 172.7 cm; Wt 71.1 kg
[~2021-01-06] MED LIST changes: +DICLOFENAC SOD100 GM TOP; +GLUCOSAMINE MS PO
[2021-01-06 13:04] VITALS: BP 145/87
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
== END ==
LOC: PAIN 11:08
PROVIDERS: ATTEND Clinical Nurse Specialist Adult Health
DX: M51.16 Intervertebral disc disorders with radiculopathy, lumbar region (principal); G89.4 Chronic pain syndrome; M47.26 Other spondylosis with radiculopathy, lumbar region; M25.552 Pain in left hip; Z79.891 Long term (current) use of opiate analgesic; Z79.899 Other long term (current) drug therapy

== ENCOUNTER → 2021-04-04 | Outpatient (CLI) | payer OTHER ==
[~2021-04-04] VITALS: Ht 172.7 cm; Wt 67.1 kg
[2021-04-04 10:53] VITALS: BP 116/72
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
== END ==
LOC: PAIN 07:06
PROVIDERS: ATTEND Clinical Nurse Specialist Adult Health
DX: M47.816 Spondylosis without myelopathy or radiculopathy, lumbar region (principal); G89.29 Other chronic pain; M51.36 Other intervertebral disc degeneration, lumbar region; Z79.891 Long term (current) use of opiate analgesic; Z79.899 Other long term (current) drug therapy

== ENCOUNTER → 2021-08-18 | Outpatient (CLI) | payer OTHER ==
[~2021-08-18] VITALS: Ht 175.3 cm; Wt 64.4 kg
[~2021-08-18] MED LIST changes: +CYMBALTA30 MG PO
[2021-08-18 12:46] VITALS: BP 147/91
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
== END ==
LOC: PAIN 12:21
PROVIDERS: ATTEND Clinical Nurse Specialist Adult Health
DX: G89.29 Other chronic pain (principal); G62.9 Polyneuropathy, unspecified; M51.36 Other intervertebral disc degeneration, lumbar region; M17.0 Bilateral primary osteoarthritis of knee; M47.816 Spondylosis without myelopathy or radiculopathy, lumbar region; M54.50 Low back pain, unspecified; F32.A Depression, unspecified; Z79.899 Other long term (current) drug therapy